=== PATIENT | female | born 1995 | race American Indian/Alaskan Native ===

== ENCOUNTER 2017-01-12 23:04 | Emergency (ER) | payer OTHER ==
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
[2017-01-13 04:22] VITALS: BP 119/76
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
[2017-01-13] MEDS ORDERED: FLEXERIL PO ONE (07:06)
[2017-01-13] MEDS ORDERED: TORADOL IM ONE (07:06)
== END 2017-01-13 07:21 | disposition home or self-care (01) ==
LOC: ED 23:04
DX: S06.891A Other specified intracranial injury with loss of consciousness of 30 minutes or less, initial encounter (principal); S16.1XXA Strain of muscle, fascia and tendon at neck level, initial encounter; S39.012A Strain of muscle, fascia and tendon of lower back, initial encounter; V49.59XA Passenger injured in collision with other motor vehicles in traffic accident, initial encounter; Y92.488 Other paved roadways as the place of occurrence of the external cause; Y93.89 Activity, other specified; Y99.8 Other external cause status
CPT/HCPCS: 70450; 72070; 72100; 72125; 81025; 96372; 99285; J1885

== ENCOUNTER 2020-02-15 16:28 | Emergency (ER) | payer SELFPAY ==
[2020-02-15 16:51] VITALS: BP 107/63
[2020-02-15 17:35] LABS: Hematocrit 35.6 % (30.3-42.9); Hemoglobin 11.9 gm/dl (10.1-14.3); Lymphocytes # (Auto) 1.8 K/mm3 (1.2-5.4); Lymphocytes % (Auto) 37.4 % (13.4-35.0); Mean Corpuscular HGB Conc 33 % (30-34); Mean Corpuscular Volume 91 fl (79-97); Monocytes # (Auto) 0.4 K/mm3 (0.0-0.8); Platelet Count 261 K/mm3 (140-440); Red Blood Count 3.93 M/mm3 (3.65-5.03); Red Cell Distribution Width 13.5 % (13.2-15.2)
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
--- NOTE | 2020-02-15 19:43 | Ultrasound Report ---
ULTRASOUND OBSTETRIC Indication: pelvic pain and vaginal bleeding Findings: Transabdominal and transvaginal imaging is performed. Intrauterine is identified [place]-rump length = 1.83 cm = 8 weeks, 2 day(s). No heartbeat is identified. Right ovary measures 3.7 cm and is unremarkable. The left ovary measures 3.4 cm and contains a 1.7 cm cyst. Impression: Intrauterine is identified with calculated sonographic age of 8 weeks and 2 days based upon crown-rump length. No heartbeat is identified Signer Name: Slim Lopes MD Signed: 02/15/2020 7:39 PM Workstation Name: [id number]
[2020-02-15 20:08] LABS: Bacteria,Urine 1+ /HPF (Negative); Bilirubin,Urine NEG (Negative); Blood,Urine LG (Negative); Color,Urine Amber (Yellow); Mucus,Urine 3+ /HPF; Protein,Urine <15 mg/dL mg/dL (Negative); Urobilinogen,Urine < 2.0 mg/dL (<2.0)
== END 2020-02-15 20:25 | disposition home or self-care (01) ==
LOC: ED 16:28
DX: O20.0 Threatened abortion (principal); O23.41 Unspecified infection of urinary tract in pregnancy, first trimester; Z3A.08 8 weeks gestation of pregnancy; Z79.899 Other long term (current) drug therapy; Z98.890 Other specified postprocedural states
CPT/HCPCS: 36415; 76801; 76817; 81001; 84702; 85025; 86900; 86901

== ENCOUNTER 2020-07-13 15:36 | Emergency (ER) | payer SELFPAY ==
[2020-07-13 15:54] VITALS: BP 100/61
[2020-07-13 17:04] LABS: Bacteria,Urine 1+ /HPF (Negative); Bilirubin,Urine NEG (Negative); Blood,Urine NEG (Negative); Color,Urine Yellow (Yellow); Mucus,Urine FEW /HPF; Protein,Urine <15 mg/dL mg/dL (Negative); RBC,Urine < 1.0 /HPF (0.0-6.0); Urobilinogen,Urine < 2.0 mg/dL (<2.0)
== END 2020-07-13 19:08 | disposition left against medical advice (07) ==
LOC: ED 15:36
DX: O26.899 Other specified pregnancy related conditions, unspecified trimester (principal); R07.89 Other chest pain; R10.9 Unspecified abdominal pain; Z3A.00 Weeks of gestation of pregnancy not specified; Z53.21 Procedure and treatment not carried out due to patient leaving prior to being seen by health care provider
CPT/HCPCS: 81001

== ENCOUNTER 2020-07-17 11:09 | Emergency (ER) | payer SELFPAY ==
[2020-07-17 12:29] LABS: Basophils % (Auto) 0.5 % (0.0-1.8); Eosinophils % (Auto) 0.2 % (0.0-4.3); Hematocrit 37.7 % (30.3-42.9); Hemoglobin 12.4 gm/dl (10.1-14.3); Lymphocytes # (Auto) 1.8 K/mm3 (1.2-5.4); Lymphocytes % (Auto) 33.9 % (13.4-35.0); Mean Corpuscular HGB Conc 33 % (30-34); Mean Corpuscular Volume 88 fl (79-97); Monocytes # (Auto) 0.4 K/mm3 (0.0-0.8); Platelet Count 274 K/mm3 (140-440); Red Blood Count 4.31 M/mm3 (3.65-5.03); Red Cell Distribution Width 17.1 % (13.2-15.2)
[2020-07-17 12:32] LABS: Alanine Aminotransferase 7 units/L (7-56); Blood Urea Nitrogen 6 mg/dL (7-17); Calcium 9.5 mg/dL (8.4-10.2); Hemolysis Index 4
[2020-07-17 12:36] LABS: BUN/Creatinine Ratio 10
[2020-07-17] MEDS ORDERED: ACETAMINOPHEN 500 MG TAB PO ONE (14:09)
[2020-07-17] MEDS ORDERED: SODIUM CHLORIDE 0.9% 1000 ML 1,000 ML IV ONE (14:11)
--- NOTE | 2020-07-17 14:11 | Emergency Department Report ---
ED General Adult HPI - General Chief complaint: Medical Clearance Stated complaint: /CHEST/BACK/SOB/ABD PAIN Time Seen by Provider: 07/17/20 13:38 Source: patient Mode of arrival: Ambulatory Limitations: No Limitations - History of Present Illness Initial comments: 25-year-old -[place] female patient presents with complaints of lower abdominal cramping pain x1 week and feeling like her heart is racing when standing up for the past 2 weeks. Patient states she had a positive test 1 week ago. She denies any vaginal bleeding, dyspareunia, vaginal discharge,, chest pain/shortness of breath, fever/chills/sweats, or dysuria/he maturia. She does admit to urinary frequency. She is A0. She rates her current pain is 8/10 in severity. - Related Data Previous Rx's Medication Instructions Recorded Last Taken Type Naproxen [Naprosyn] 500 mg PO BID #30 tablet 01/13/17 Unknown Rx methOCARBAMOL [Robaxin TAB] 500 mg PO BID #20 tab 01/13/17 Unknown Rx Nitrofurantoin [place]/M-Cryst 100 mg PO Q12HR #14 capsule 02/15/20 Unknown Rx [Macrobid CAP] 21/Iron Fu/Folic Acid 1 each PO DAILY #30 tablet 02/15/20 Unknown Rx [ Complete Caplet] Amoxicillin/Potassium Clav 1 each PO BID 5 Days #10 tablet 07/17/20 Unknown Rx [Augmentin 875-125 Tablet] Allergies Allergy/AdvReac Type Severity Reaction Status Date / Time No Known Allergies Allergy Verified 07/13/20 15:51 ED Review of Systems ROS: Stated complaint: /CHEST/BACK/SOB/ABD PAIN Other details as noted in HPI ED Past Medical Hx - Past Medical History Previous Medical History?: No - Surgical History Past Surgical History?: No Additional Surgical History: right ankle - Social History Smoking Status: Never Smoker Substance Use Type: None - Medications Home Medications: Home Medications Medication Instructions Recorded Confirmed Last Taken Type Naproxen [Naprosyn] 500 mg PO BID #30 tablet 01/13/17 Unknown Rx methOCARBAMOL [Robaxin TAB] 500 mg PO BID #20 tab 01/13/17 Unknown Rx Nitrofurantoin [place]/M-Cryst 100 mg PO Q12HR #14 capsule 02/15/20 Unknown Rx [Macrobid CAP] 21/Iron Fu/Folic Acid 1 each PO DAILY #30 tablet 02/15/20 Unknown Rx [ Complete Caplet] Amoxicillin/Potassium Clav 1 each PO BID 5 Days #10 tablet 07/17/20 Unknown Rx [Augmentin 875-125 Tablet] ED Physical Exam - General Limitations: No Limitations General appearance: alert, in no apparent distress - Head Head exam: Present: atraumatic - Eye Eye exam: Present: normal appearance. Absent: scleral icterus - ENT ENT exam: Present: mucous membranes moist - Neck Neck exam: Present: normal inspection - Respiratory Respiratory exam: Present: normal lung sounds bilaterally. Absent: respiratory distress, chest wall tenderness - Cardiovascular Cardiovascular Exam: Present: regular rate, normal rhythm. Absent: systolic murmur, diastolic murmur, rubs, gallop - GI/Abdominal GI/Abdominal exam: Present: soft, tenderness (Suprapubic), normal bowel sounds. Absent: distended, guarding, rebound, rigid - Extremities Exam Extremities exam: Present: normal inspection - Back Exam Back exam: Present: normal inspection - Neurological Exam Neurological exam: Present: alert, oriented X3, normal gait - Psychiatric Psychiatric exam: Present: normal affect, normal mood - Skin Skin exam: Present: warm, dry, intact, normal color. Absent: rash, cyanosis, diaphoretic ED Course Vital Signs 07/17/20 07/17/20 07/17/20 11:17 16:13 16:15 Temperature 98.8 F Pulse Rate 104 H Respiratory 16 Rate Blood Pressure 114/63 98/65 [Left] Blood Pressure 108/68 114/63 [Right] O2 Sat by Pulse 98 Oximetry ED Medical Decision Making - Lab Data Result diagrams: 07/17/20 11:31 07/17/20 11:31 Lab Results 07/17/20 07/17/20 07/17/20 Range/Units 11:31 11:31 11:31 WBC 5.3 (4.5-11.0) K/mm3 RBC 4.31 (3.65-5.03) M/mm3 Hgb 12.4 (10.1-14.3) gm/dl Hct 37.7 (30.3-42.9) % MCV 88 (79-97) fl MCH 29 (28-32) pg MCHC 33 (30-34) % RDW 17.1 H (13.2-15.2) % Plt Count 274 (140-440) K/mm3 Lymph % (Auto) 33.9 (13.4-35.0) % [place] % (Auto) 8.0 H (0.0-7.3) % Eos % (Auto) 0.2 (0.0-4.3) % Baso % (Auto) 0.5 (0.0-1.8) % Lymph # (Auto) 1.8 (1.2-5.4) K/mm3 [place] # (Auto) 0.4 (0.0-0.8) K/mm3 Eos # (Auto) 0.0 (0.0-0.4) K/mm3 Baso # (Auto) 0.0 (0.0-0.1) K/mm3 Seg Neutrophils % 57.4 (40.0-70.0) % Seg Neutrophils # 3.0 (1.8-7.7) K/mm3 Sodium 134 L (137-145) mmol/L Potassium 4.5 (3.6-5.0) mmol/L Chloride 100.2 (98-107) mmol/L Carbon Dioxide 25 (22-30) mmol/L Anion Gap 13 mmol/L BUN 6 L (7-17) mg/dL Creatinine 0.6 (0.6-1.2) mg/dL Estimated GFR > 60 ml/min BUN/Creatinine Ratio 10 % Glucose 76 (65-100) mg/dL Calcium 9.5 (8.4-10.2) mg/dL Total Bilirubin 0.50 (0.1-1.2) mg/dL AST 10 (5-40) units/L ALT 7 (7-56) units/L Alkaline Phosphatase 54 (35-129) units/L Total Protein 7.5 (6.3-8.2) g/dL Albumin 4.0 (3.9-5) g/dL Albumin/Globulin Ratio 1.1 % HCG, Quant 17926 H (0-4) mIU/mL Urine Color (Yellow) Urine Turbidity (Clear) Urine pH (5.0-7.0) Ur Specific [place] (1.003-1.030) Urine Protein (Negative) mg/dL Urine Glucose (UA) (Negative) mg/dL Urine Ketones (Negative) mg/dL Urine Blood (Negative) Urine Nitrite (Negative) Urine Bilirubin (Negative) Urine Urobilinogen (<2.0) mg/dL Ur Leukocyte Esterase (Negative) Urine WBC (Auto) (0.0-6.0) /HPF Urine RBC (Auto) (0.0-6.0) /HPF U Epithel Cells (Auto) (0-13.0) /HPF Urine Bacteria (Auto) (Negative) /HPF Urine Mucus /HPF 07/17/20 Range/Units 13:19 WBC (4.5-11.0) K/mm3 RBC (3.65-5.03) M/mm3 Hgb (10.1-14.3) gm/dl Hct (30.3-42.9) % MCV (79-97) fl MCH (28-32) pg MCHC (30-34) % RDW (13.2-15.2) % Plt Count (140-440) K/mm3 Lymph % (Auto) (13.4-35.0) % [place] % (Auto) (0.0-7.3) % Eos % (Auto) (0.0-4.3) % Baso % (Auto) (0.0-1.8) % Lymph # (Auto) (1.2-5.4) K/mm3 [place] # (Auto) (0.0-0.8) K/mm3 Eos # (Auto) (0.0-0.4) K/mm3 Baso # (Auto) (0.0-0.1) K/mm3 Seg Neutrophils % (40.0-70.0) % Seg Neutrophils # (1.8-7.7) K/mm3 Sodium (137-145) mmol/L Potassium (3.6-5.0) mmol/L Chloride (98-107) mmol/L Carbon Dioxide (22-30) mmol/L Anion Gap mmol/L BUN (7-17) mg/dL Creatinine (0.6-1.2) mg/dL Estimated GFR ml/min BUN/Creatinine Ratio % Glucose (65-100) mg/dL Calcium (8.4-10.2) mg/dL Total Bilirubin (0.1-1.2) mg/dL AST (5-40) units/L ALT (7-56) units/L Alkaline Phosphatase (35-129) units/L Total Protein (6.3-8.2) g/dL Albumin (3.9-5) g/dL Albumin/Globulin Ratio % HCG, Quant (0-4) mIU/mL Urine Color [place] (Yellow) Urine Turbidity Slightly-cloudy (Clear) Urine pH 5.0 (5.0-7.0) Ur Specific [place] 1.026 (1.003-1.030) Urine Protein 30 mg/dl (Negative) mg/dL Urine Glucose (UA) Neg (Negative) mg/dL Urine Ketones 20 (Negative) mg/dL Urine Blood Neg (Negative) Urine Nitrite Pos (Negative) Urine Bilirubin Neg (Negative) Urine Urobilinogen < 2.0 (<2.0) mg/dL Ur Leukocyte Esterase Lg (Negative) Urine WBC (Auto) 7.0 H (0.0-6.0) /HPF Urine RBC (Auto) 3.0 (0.0-6.0) /HPF U Epithel Cells (Auto) 8.0 (0-13.0) /HPF Urine Bacteria (Auto) 3+ (Negative) /HPF Urine Mucus 3+ /HPF - EKG Data EKG shows normal: sinus rhythm Rate: normal - Radiology Data Radiology results: report reviewed ULTRASOUND OBSTETRIC Indication: suprapubic pain Findings: There is a single, living intrauterine . [place]-rump length = 0.43 cm = 6 weeks, 1 day(s). Gestational sac size corresponds to 7 week 1 day gestation. heart rate is 112 beats per minute. The ovaries are not well visualized. There appears to be a small amount of free fluid Impression: Single, living intrauterine with estimated sonographic age of 6 weeks, 5 day(s). - Medical Decision Making 25-year-old -[place] female patient presents with complaints of lower abdominal cramping pain x1 week and feeling like her heart is racing when standing up for the past 2 weeks. Patient states she had a positive test 1 week ago. She denies any vaginal bleeding, dyspareunia, vaginal discharge,, chest pain/shortness of breath, fever/chills/sweats, or dysuria/hematuria. She does admit to urinary frequency. She is A0. She rates her current pain is 8/10 in severity. There is suprapubic tenderness to palpation noted on exam without rebound or guarding. CBC and CMP are WNL. UA shows 8 WBCs and is positive for nitrites. Urine culture sent. Mild orthostatic hypotension noted. Patient given 1 L saline. EKG is normal. Patient is nontoxic-appearing, her vitals are normal, she is stable for discharge home. Prescription for UTI given, Augmentin. Patient instructed to follow-up with [employer] within 3 days. Referral for [employer] was also given. Strict return precautions were discussed in great detail with patient who verbalizes understanding. Critical care attestation.: If time is entered above; I have spent that time in minutes in the direct care of this critically ill patient, excluding procedure time. ED Disposition Clinical Impression: Dehydration UTI in Qualifiers: Trimester: first trimester Qualified Code(s): O23.41 - Unspecified infection of urinary tract in , first trimester Disposition: TO HOME OR SELFCARE Is pt being admited?: No Condition: Stable Instructions: Urinary Tract Infection in Women (ED), Abdominal Pain in (ED), Dehydration (ED) Prescriptions: Amoxicillin/Potassium Clav [Augmentin 875-125 Tablet] 1 each PO BID 5 Days #10 tablet Referrals: ROMANA HERCULES MD [Staff Physician] - 07/19/20
[2020-07-17 14:21] LABS: Bacteria,Urine 3+ /HPF (Negative); Bilirubin,Urine NEG (Negative); Blood,Urine NEG (Negative); Color,Urine Amber (Yellow); Mucus,Urine 3+ /HPF; Urobilinogen,Urine < 2.0 mg/dL (<2.0)
--- NOTE | 2020-07-17 15:21 | Ultrasound Report ---
ULTRASOUND OBSTETRIC Indication: suprapubic pain Findings: There is a single, living intrauterine . [employer]-rump length = 0.43 cm = 6 weeks, 1 day(s). Gestational sac size corresponds to 7 week 1 day ges tation. heart rate is 112 beats per minute. The ovaries are not well visualized. There appears to be a small amount of free fluid Impression: Single, living intrauterine with estimated sonographic age of 6 weeks, 5 day(s). Signer Name: Slim Lopes MD Signed: 07/17/2020 3:17 PM Workstation Name: [id number]
[2020-07-17 16:16] VITALS: BP 98/65
== END 2020-07-17 18:10 | disposition home or self-care (01) ==
LOC: ED 11:09
DX: O23.41 Unspecified infection of urinary tract in pregnancy, first trimester (principal); O99.281 Endocrine, nutritional and metabolic diseases complicating pregnancy, first trimester; Z3A.08 8 weeks gestation of pregnancy; E86.0 Dehydration
CPT/HCPCS: 36415; 76801; 80053; 81001; 84702; 85025; 87076; 87086; 87186; 96361; 96374; 99284; J7030

== ENCOUNTER 2020-08-23 13:03 | Emergency (ER) | payer SELFPAY ==
--- NOTE | 2020-08-23 13:25 | Emergency Department Report ---
ED Female HPI - General Chief complaint: Vaginal Bleeding Stated complaint: POSSIBLE MISCARRIAGE Time Seen by Provider: 08/23/20 13:23 Source: patient Mode of arrival: Ambulatory Limitations: No Limitations - History of Present Illness Initial comments: 25-year-old -[place] female presents to the emergency room complaining of vaginal bleeding for 1 week with passing clots yesterday. Patient complains of mild pelvic cramping. Patient reports that she is approximate 11 weeks . Last menstrual period was May 27, 2020. She is 5 para 2. She has no care. She has no desire to have this baby. MD Complaint: vaginal bleeding, pelvic pain Onset/Timin -: week(s) Location: suprapubic Severity scale (0 -10): 10 Quality: cramping Consistency: constant Improves with: none Worsens with: none Are you Now?: Yes Last Menstrual Period: 05/27/20 EDC: 03/03/21 Associated Symptoms: vaginal bleeding, abdominal pain - Related Data Sexually active: Yes : 5 Para: 2 Previous Rx's Medication Instructions Recorded Last Taken Type Naproxen [Naprosyn] 500 mg PO BID #30 tablet 01/13/17 Unknown Rx methOCARBAMOL [Robaxin TAB] 500 mg PO BID #20 tab 01/13/17 Unknown Rx 21/Iron Fu/Folic Acid 1 each PO DAILY #30 tablet 02/15/20 Unknown Rx [ Complete Caplet] Amoxicillin/Potassium Clav 1 each PO BID 5 Days #10 tablet 07/17/20 Unknown Rx [Augmentin 875-125 Tablet] Nitrofurantoin Terry/M-Cryst 100 mg PO Q12HR #14 capsule 08/23/20 Unknown Rx [Macrobid CAP] Vit-Fe Fumar-FA [ 1 tab PO QDAY #90 tablet 08/23/20 Unknown Rx Vitamin] Allergies Allergy/AdvReac Type Severity Reaction Status Date / Time No Known Allergies Allergy Verified 08/23/20 13:05 ED Review of Systems ROS: Stated complaint: POSSIBLE MISCARRIAGE Other details as noted in HPI ED Past Medical Hx - Past Medical History Previous Medical History?: No - Surgical History Past Surgical History?: Yes Additional Surgical History: right ankle - Social History Smoking Status: Never Smoker Substance Use Type: None - Medications Home Medications: Home Medications Medication Instructions Recorded Confirmed Last Taken Type Naproxen [Naprosyn] 500 mg PO BID #30 tablet 01/13/17 Unknown Rx methOCARBAMOL [Robaxin TAB] 500 mg PO BID #20 tab 01/13/17 Unknown Rx 21/Iron Fu/Folic Acid 1 each PO DAILY #30 tablet 02/15/20 Unknown Rx [ Complete Caplet] Amoxicillin/Potassium Clav 1 each PO BID 5 Days #10 tablet 07/17/20 Unknown Rx [Augmentin 875-125 Tablet] Nitrofurantoin Terry/M-Cryst 100 mg PO Q12HR #14 capsule 08/23/20 Unknown Rx [Macrobid CAP] Vit-Fe Fumar-FA [ 1 tab PO QDAY #90 tablet 08/23/20 Unknown Rx Vitamin] ED Physical Exam - General Limitations: No Limitations ED Course Vital Signs 08/23/20 13:10 Temperature 97.4 F L Pulse Rate 105 H Respiratory 16 Rate Blood Pressure 119/70 O2 Sat by Pulse 99 Oximetry ED Medical Decision Making - Lab Data Result diagrams: 08/23/20 14:18 - Radiology Data Radiology results: report reviewed Referring Physician:BOO MUNOZPatient Name:STACIE JOSEPHPatient ID:[id number] of :[id number]:FemaleAccession:[id number] te:[id number] Status:[place] [address] Ultrasound Report Signed Patient: STACIE JOSEPH MR#: [id number] : 1995 Acct:[id number] Age/Sex: 25 / F ADM Date: 08/23/20 Loc: ED Attending Dr: Ordering Physician: MARGARET PROCTOR Date of Service: 08/23/20 Procedure(s): US OB <= 14 weeks fetus Accession Number(s): [id number] cc: MARGARET PROCTOR ULTRASOUND OBSTETRIC INDICATION: 11 weeks with vaginal bleeding. TECHNIQUE: Transabdominal. COMPARISON: OB ultrasound from 07/17/2020 FINDINGS: GESTATIONAL SAC: Well-defined oval shape and intrauterine in location. YOLK SAC: No significant abnormality. EMBRYO/FETUS: No significant abnormality. - [place]-Rump Length = 5.51 cm = 12 weeks, 1 day(s). - Heart Rate = 149 beats per minute. ADNEXA: No significant abnormality. FREE FLUID: None. ADDITIONAL FINDINGS: An area of subchorionic hemorrhage measures 4.5 x 3.1 x 4.9 cm. IMPRESSION: 1. Single, living intrauterine with estimated sonographic age of 12 weeks, 1 day(s). 2. Subchorionic hemorrhage as above. Signer Name: Barry Bruner MD Signed: 08/23/2020 2:40 PM Workstation Name: [id number] Transcribed By: MN Dictated By: Barry Bruner MD Electronically Authenticated By: Barry Bruner MD Signed Date/Time: 08/23/20 1440 DD/ 1436 TD/TT: - Medical Decision Making 25-year-old -[place] female presents to the emergency room complaining of vaginal bleeding for 1 week with passing clots yesterday. Patient complains of mild pelvic cramping. Patient reports that she is approximate 11 weeks . Last menstrual period was May 27, 2020. She is 5 para 2. She has no care. She has no desire to have this baby. Critical care attestation.: If time is entered above; I have spent that time in minutes in the direct care of this critically ill patient, excluding procedure time. ED Disposition Clinical Impression: Subchorionic hemorrhage in second trimester Qualifiers: Fetus number: single or unspecified fetus Qualified Code(s): O41.8X20 - Other specified disorders of amniotic fluid and membranes, second trimester, not applicable or unspecified; O46.8X2 - Other antepartum hemorrhage, second tri mester UTI (urinary tract infection) Qualifiers: Urinary tract infection type: site unspecified Hematuria presence: with he maturia Qualified Code(s): N39.0 - Urinary tract infection, site not specified; R31.9 - Hematuria, unspecified Disposition: DC-01 TO HOME OR SELFCARE Is pt being admited?: No Does the pt Need Aspirin: No Condition: Stable Instructions: Vaginal Bleeding During , Second Trimester, Activity Restriction During , Subchorionic Hematoma Additional Instructions: Urine shows that you have urinary tract infection. Ultrasound shows that you are 12 weeks and 1 day. Also shows that you have a mild bleeding from implantation of the fetus from 1 location to the other. Fetus heart rate is 147 bpm. Is very important for you to take your vitamins and to follow-up with care with an SUPPLY OFFICER. I have listed their information below for your convenience. Is also very important for you to increase your water intake by 3 to 4 L daily. Prescriptions: Nitrofurantoin [place]/M-Cryst [Macrobid CAP] 100 mg PO Q12HR #14 capsule Vit-Fe Fumar-FA [ Vitamin] 1 tab PO QDAY #90 tablet Referrals: PRIMARY CAREMD [Primary Care Provider] - 3-5 Days [facility] [Provider Group] - 3-5 Days [facility] [Provider Group] - 3-5 Days
--- NOTE | 2020-08-23 14:45 | Ultrasound Report ---
ULTRASOUND OBSTETRIC INDICATION: 11 weeks with vaginal bleeding. TECHNIQUE: Transabdominal. COMPARISON: OB ultrasound from 07/17/2020 FINDINGS: GESTATIONAL SAC: Well-defined oval shape and intrauterine in location. YOLK SAC: No significant abnormality. EMBRYO/FETUS: No significant abnormality. - [place]-Rump Length = 5.51 cm = 12 weeks, 1 day(s). - Heart Rate = 149 beats per minute. ADNEXA: No significant abnormality. FREE FLUID: None. ADDITIONAL FINDINGS: An area of subchorionic hemorrhage measures 4.5 x 3.1 x 4.9 cm. IMPRESSION: 1. Single, living intrauterine with estimated sonographic age of 12 weeks, 1 day(s). 2. Subchorionic hemorrhage as above. Signer Name: Barry Bruner MD Signed: 08/23/2020 2:40 PM Workstation Name: [id number]
[2020-08-23 15:10] LABS: Basophils % (Auto) 0.4 % (0.0-1.8); Eosinophils % (Auto) 0.8 % (0.0-4.3); Hematocrit 32.6 % (30.3-42.9); Hemoglobin 10.9 gm/dl (10.1-14.3); Lymphocytes # (Auto) 1.3 K/mm3 (1.2-5.4); Lymphocytes % (Auto) 27.4 % (13.4-35.0); Mean Corpuscular HGB Conc 34 % (30-34); Mean Corpuscular Volume 91 fl (79-97); Monocytes # (Auto) 0.4 K/mm3 (0.0-0.8); Monocytes % (Auto) 7.8 % (0.0-7.3); Platelet Count 214 K/mm3 (140-440); Red Blood Count 3.58 M/mm3 (3.65-5.03); Red Cell Distribution Width 15.5 % (13.2-15.2)
[2020-08-23 15:21] LABS: Alanine Aminotransferase 6 units/L (7-56); Albumin 3.3 g/dL (3.9-5); Blood Urea Nitrogen 4 mg/dL (7-17); Calcium 9.1 mg/dL (8.4-10.2); Hemolysis Index 30
[2020-08-23 15:25] LABS: BUN/Creatinine Ratio 8
[2020-08-23 16:02] LABS: Bacteria,Urine 4+ /HPF (Negative); Mucus,Urine 3+ /HPF
[2020-08-23 16:21] LABS: Color,Urine Yellow (Yellow)
[2020-08-23 17:03] VITALS: BP 116/46
== END 2020-08-23 17:03 | disposition home or self-care (01) ==
LOC: ED 13:03
DX: O41.8X10 Other specified disorders of amniotic fluid and membranes, first trimester, not applicable or unspecified (principal); O46.8X1 Other antepartum hemorrhage, first trimester; O23.41 Unspecified infection of urinary tract in pregnancy, first trimester; Z79.899 Other long term (current) drug therapy; Z3A.11 11 weeks gestation of pregnancy
CPT/HCPCS: 36415; 76801; 80053; 81001; 84702; 85025; 86900; 86901; 87076; 87086; 87186

== ENCOUNTER 2020-09-15 07:28 | Emergency (ER) | payer SELFPAY ==
[2020-09-15 07:45] VITALS: BP 105/44
--- NOTE | 2020-09-15 07:58 | Emergency Department Report ---
ED Female HPI - General Chief complaint: Vaginal Bleeding Stated complaint: POSS MISCARRAGE Time Seen by Provider: 09/15/20 07:53 Source: patient Mode of arrival: Ambulatory Limitations: No Limitations - History of Present Illness Initial comments: CC: "I have been bleeding. I am in pain." HPI: THis is a 25 yo female without significant past medical history who presents with vaginal bleeding and pelvic pain for several days. Patient is currently 14 weeks pregannt. She has had intermittent bleeding for several weeks. The cramping and bleeding has become more intense. Patient has depressed mood. "I have a lot going on." She denies plans to harm herself. She has been 6 times. She has history of abortions. MD Complaint: vaginal bleeding, pelvic pain -: Gradual, week(s) (several weeks) Severity: moderate Severity scale (0 -10): 7 Quality: cramping Consistency: constant Improves with: none Worsens with: none Are you Now?: Yes - Related Data Previous Rx's Medication Instructions Recorded Last Taken Type Naproxen [Naprosyn] 500 mg PO BID #30 tablet 01/13/17 Unknown Rx methOCARBAMOL [Robaxin TAB] 500 mg PO BID #20 tab 01/13/17 Unknown Rx 21/Iron Fu/Folic Acid 1 each PO DAILY #30 tablet 02/15/20 Unknown Rx [ Complete Caplet] Amoxicillin/Potassium Clav 1 each PO BID 5 Days #10 tablet 07/17/20 Unknown Rx [Augmentin 875-125 Tablet] Nitrofurantoin [place]/M-Cryst 100 mg PO Q12HR #14 capsule 08/23/20 Unknown Rx [Macrobid CAP] Vit-Fe Fumar-FA [ 1 tab PO QDAY #90 tablet 08/23/20 Unknown Rx Vitamin] Allergies Allergy/AdvReac Type Severity Reaction Status Date / Time No Known Allergies Allergy Verified 08/23/20 13:05 ED Review of Systems ROS: Stated complaint: POSS MISCARRAGE Other details as noted in HPI Comment: All other systems reviewed and negative Constitutional: denies: fever, malaise Respiratory: denies: cough Gastrointestinal: abdominal pain ED Past Medical Hx - Past Medical History Previous Medical History?: No - Surgical History Past Surgical History?: Yes Additional Surgical History: right ankle - Social History Smoking Status: Never Smoker Substance Use Type: None - Medications Home Medications: Home Medications Medication Instructions Recorded Confirmed Last Taken Type Naproxen [Naprosyn] 500 mg PO BID #30 tablet 01/13/17 Unknown Rx methOCARBAMOL [Robaxin TAB] 500 mg PO BID #20 tab 01/13/17 Unknown Rx 21/Iron Fu/Folic Acid 1 each PO DAILY #30 tablet 02/15/20 Unknown Rx [ Complete Caplet] Amoxicillin/Potassium Clav 1 each PO BID 5 Days #10 tablet 07/17/20 Unknown Rx [Augmentin 875-125 Tablet] Nitrofurantoin [place]/M-Cryst 100 mg PO Q12HR #14 capsule 08/23/20 Unknown Rx [Macrobid CAP] Vit-Fe Fumar-FA [ 1 tab PO QDAY #90 tablet 08/23/20 Unknown Rx Vitamin] ED Physical Exam - General Limitations: No Limitations General appearance: alert, in no apparent distress, other (tearful) - Head Head exam: Present: atraumatic, normocephalic - Eye Eye exam: Present: normal appearance - ENT ENT exam: Present: mucous membranes moist - Neck Neck exam: Present: normal inspection - Respiratory Respiratory exam: Present: normal lung sounds bilaterally. Absent: respiratory distress, wheezes, rales, rhonchi - Cardiovascular Cardiovascular Exam: Present: regular rate, normal rhythm, normal heart sounds. Absent: systolic murmur, diastolic murmur, rubs, gallop - GI/Abdominal GI/Abdominal exam: Present: soft, normal bowel sounds. Absent: distended, tenderness, guarding, rebound - Extremities Exam Extremities exam: Present: normal inspection - Back Exam Back exam: Present: normal inspection - Neurological Exam Neurological exam: Present: alert, oriented X3 - Psychiatric Psychiatric exam: Present: normal affect, depressed. Absent: suicidal ideation - Skin Skin exam: Present: warm, dry, intact, normal color. Absent: rash ED Course Vital Signs 09/15/20 09/15/20 07:42 08:02 Temperature 98.7 F Pulse Rate 64 Respiratory 16 18 Rate Blood Pressure 105/44 [Right] O2 Sat by Pulse 98 Oximetry ED Medical Decision Making - Lab Data Result diagrams: 09/15/20 07:55 09/15/20 07:55 - Medical Decision Making Spontaneous miscarriage Ultrasound revealed complete miscarriage. There is no intrauterine at this time. Upon lab review CBC chemistry with normal limits. Blood type O+. Critical care attestation.: If time is entered above; I have spent that time in minutes in the direct care of this critically ill patient, excluding procedure time. ED Disposition Clinical Impression: Spontaneous miscarriage Disposition: - TO HOME OR SELFCARE Is pt being admited?: No Does the pt Need Aspirin: No Condition: Stable Instructions: Miscarriage, [id number], Managing Loss
[2020-09-15 08:40] LABS: Hematocrit 30.3 % (30.3-42.9); Hemoglobin 10.2 gm/dl (10.1-14.3); Mean Corpuscular HGB Conc 34 % (30-34); Mean Corpuscular Volume 93 fl (79-97); Platelet Count 229 K/mm3 (140-440); Red Blood Count 3.26 M/mm3 (3.65-5.03)
[2020-09-15] MEDS ORDERED: IBUPROFEN 800 MG TAB PO ONE ×2 (08:41→09:55)
[2020-09-15] MEDS ORDERED: HYDROcodone/ACETAMINOPHEN 5-325 MG TAB PO ONE ×2 (08:41→09:56)
[2020-09-15] MEDS ORDERED: ONDANSETRON 4 MG ODT TAB PO ONE (08:41)
[2020-09-15] MEDS ORDERED: ACETAMINOPHEN 500 MG TAB PO ONE (08:42)
[2020-09-15 09:01] LABS: Alanine Aminotransferase 6 units/L (7-56); Albumin 3.2 g/dL (3.9-5); Blood Urea Nitrogen 5 mg/dL (7-17); Calcium 8.9 mg/dL (8.4-10.2); Hemolysis Index 0
[2020-09-15 09:11] LABS: BUN/Creatinine Ratio 10
--- NOTE | 2020-09-15 09:16 | Ultrasound Report ---
[facility]IME[facility] OBSTETRIC ULTRASOUND HISTORY: Provided clinical history of pelvic pain and vaginal bleeding. Clinical gestational age of 1 6 weeks and 6 days. COMPARISON: 08/23/2020 oh the ultrasound TECHNIQUE: Routine transabdominal OB ultrasound performed. Transvaginal imaging not performed at mynor ent's request. FINDINGS: Uterus: Enlarged at 9.1 x 9.6 x 10.4 cm. Thickened, heterogeneous appearing endometrium without evid ence of gestational sac, yolk sac, or fetus/embryo to suggest intrauterine at this time. Embryonic/ cardiac activity: Not visualized. Placenta: Too small for evaluation. Amniotic fluid volume: Not visualized. Ovaries: The right ovary is normal in size and appearance with normal blood flow, measuring 3.3 x 1. 4 x 1.4 cm. The left ovary is normal in size and appearance with normal blood flow, measuring 2.5 x 1.3 x 1.5 cm. Additional findings: None. IMPRESSION Thickened, heterogeneous endometrium without evidence of intrauterine at this time. Lack of internal vascularity is concerning for complete miscarriage. Recommend correlation with beta hCG, cl ose continued follow-up, and further evaluation as warranted. Signer Name: Markell Johnson MD Signed: 09/15/2020 9:11 AM Workstation Name: [id number]
== END 2020-09-15 10:05 | disposition home or self-care (01) ==
LOC: ED 07:28
DX: O03.9 Complete or unspecified spontaneous abortion without complication (principal); Z79.899 Other long term (current) drug therapy; Z3A.14 14 weeks gestation of pregnancy
CPT/HCPCS: 36415; 76801; 76802; 80053; 84703; 85027; 86900; 86901; Q0162

== ENCOUNTER 2020-11-18 10:04 | Inpatient (IN) | payer SELFPAY ==
[2020-11-18] MEDS ORDERED: LACTATED RINGERS 1000 ML IV SOLN IV ONE (10:16)
[2020-11-18] MEDS ORDERED: ONDANSETRON 4 MG/2 ML INJ IV ONE (10:17)
[2020-11-18] MEDS ORDERED: PIPERACIL/TAZOBACTA 4.5/NS 100 4.5 GM/100 ML VIAL IV ONE (10:17)
[2020-11-18] MEDS ORDERED: MORPHINE 4 MG/1 ML INJ IV ONE (10:17)
[2020-11-18] MEDS ORDERED: ACETAMINOPHEN 325 MG TAB PO ONE (10:17)
--- NOTE | 2020-11-18 10:18 | Emergency Department Report ---
ED Abdominal Pain HPI - General Chief Complaint: Fever Stated Complaint: BODYACHES Time Seen by Provider: 11/18/20 10:14 Source: patient Mode of arrival: Ambulatory Limitations: No Limitations - History of Present Illness Initial Comments: pt is a 25 yo female who presents to the ED with c/o lower abd pain and lower back pain that began two days ago. she has associated urinary frequency, urinary urgency, and odor to her urine. she states she has been taking azo over the counter. she states she also has right ear discomfort. she has chills, fever, an d body aches. she denies any n/v/d, dysuria, abnormal vaginal discharge, melena, hematemesis, hematochezia, CP, or SOB. pt denies pmhx. no allergies to meds. [facility] 11/10/2020. - Related Data Previous Rx's Medication Instructions Recorded Last Taken Type Naproxen [Naprosyn] 500 mg PO BID #30 tablet 01/13/17 Unknown Rx methOCARBAMOL [Robaxin TAB] 500 mg PO BID #20 tab 01/13/17 Unknown Rx 21/Iron Fu/Folic Acid 1 each PO DAILY #30 tablet 02/15/20 Unknown Rx [ Complete Caplet] Amoxicillin/Potassium Clav 1 each PO BID 5 Days #10 tablet 07/17/20 Unknown Rx [Augmentin 875-125 Tablet] Nitrofurantoin [place]/M-Cryst 100 mg PO Q12HR #14 capsule 08/23/20 Unknown Rx [Macrobid CAP] Vit-Fe Fumar-FA [ 1 tab PO QDAY #90 tablet 08/23/20 Unknown Rx Vitamin] Ibuprofen [Motrin 800 MG tab] 800 mg PO Q8HR PRN #15 tablet 09/15/20 Unknown Rx oxyCODONE /ACETAMINOPHEN [Percocet 1 tab PO Q6HR PRN #10 tablet 09/15/20 Unknown Rx 5/325] Allergies Allergy/AdvReac Type Severity Reaction Status Date / Time No Known Allergies Allergy Verified 11/18/20 10:06 ED Review of Systems ROS: Stated complaint: BODYACHES Other details as noted in HPI Comment: All other systems reviewed and negative ED Past Medical Hx - Past Medical History Previous Medical History?: No - Surgical History Past Surgical History?: No Additional Surgical History: right ankle - Social History Smoking Status: Never Smoker Substance Use Type: None - Medications Home Medications: Home Medications Medication Instructions Recorded Confirmed Last Taken Type Naproxen [Naprosyn] 500 mg PO BID #30 tablet 01/13/17 Unknown Rx methOCARBAMOL [Robaxin TAB] 500 mg PO BID #20 tab 01/13/17 Unknown Rx 21/Iron Fu/Folic Acid 1 each PO DAILY #30 tablet 02/15/20 Unknown Rx [ Complete Caplet] Amoxicillin/Potassium Clav 1 each PO BID 5 Days #10 tablet 07/17/20 Unknown Rx [Augmentin 875-125 Tablet] Nitrofurantoin [place]/M-Cryst 100 mg PO Q12HR #14 capsule 08/23/20 Unknown Rx [Macrobid CAP] Vit-Fe Fumar-FA [ 1 tab PO QDAY #90 tablet 08/23/20 Unknown Rx Vitamin] Ibuprofen [Motrin 800 MG tab] 800 mg PO Q8HR PRN #15 tablet 09/15/20 Unknown Rx oxyCODONE /ACETAMINOPHEN [Percocet 1 tab PO Q6HR PRN #10 tablet 09/15/20 Unknown Rx 5/325] ED Physical Exam - General Limitations: No Limitations General appearance: alert, in no apparent distress - Head Head exam: Present: atraumatic, normocephalic - Eye Eye exam: Present: normal appearance - ENT ENT exam: Present: mucous membranes moist - Respiratory Respiratory exam: Present: normal lung sounds bilaterally. Absent: respiratory distress, wheezes, rales, rhonchi, stridor, chest wall tenderness, accessory m uscle use, decreased breath sounds, prolonged expiratory - Cardiovascular Cardiovascular Exam: Present: normal rhythm, tachycardia, normal heart sounds. Absent: systolic murmur, diastolic murmur, rubs, gallop - GI/Abdominal GI/Abdominal exam: Present: soft, tenderness (generalized lower abd ttp, LLQ, RLQ, suprapubic ), normal bowel sounds. Absent: distended, guarding, rebound, rigid - Neurological Exam Neurological exam: Present: alert, oriented X3 - Psychiatric Psychiatric exam: Present: normal affect, normal mood - Skin Skin exam: Present: warm, dry, intact ED Course Vital Signs 11/18/20 11/18/20 11/18/20 10:06 10:29 10:31 Temperature 102.2 F H Pulse Rate 144 H 115 H 130 H Respiratory 20 19 22 Rate Blood Pressure 145/54 113/74 113/74 O2 Sat by Pulse 100 99 99 Oximetry 11/18/20 11/18/20 11/18/20 10:45 11:01 11:31 Temperature Pulse Rate 122 H 112 H 101 H Respiratory 23 20 22 Rate Blood Pressure 109/73 110/63 105/73 O2 Sat by Pulse 98 97 98 Oximetry 11/18/20 11/18/20 11/18/20 11:46 12:01 12:31 Temperature 98.7 F Pulse Rate 90 81 Respiratory 17 27 H Rate Blood Pressure 110/71 102/64 O2 Sat by Pulse 98 98 Oximetry 11/18/20 11/18/20 11/18/20 13:01 13:31 14:00 Temperature Pulse Rate 85 75 90 Respiratory 17 16 19 Rate Blood Pressure 102/64 103/66 110/71 O2 Sat by Pulse 99 98 Oximetry 11/18/20 11/18/20 11/18/20 14:31 15:01 15:11 Temperature Pulse Rate 72 66 69 Respiratory 16 25 H 23 Rate Blood Pressure 106/62 103/59 103/59 O2 Sat by Pulse 99 100 99 Oximetry 11/18/20 11/18/20 11/18/20 15:21 15:31 15:41 Temperature Pulse Rate 68 75 69 Respiratory 18 19 22 Rate Blood Pressure 88/52 88/52 88/52 O2 Sat by Pulse 100 100 100 Oximetry - Reevaluation(s) Reevaluation #1: 11/18/20 13:20 Dr. Yee ER attending aware of patient advises admission - Consultations Consultation #1: 11/18/20 13:[address] Duval, hospitalist who advised that pt would likely needs procedural intervention, advised consulting urology 11/18/20 13:[address] Musa, urology he will consult and follow patient, advised IR consultation 11/18/20 13:[address] Stack, IR/vascular surgeon, he will review CT images and call back 11/18/20 13:[address] Stack, IR/vascular surgeon, advised does not need IR intervention at this time, recommended IV abx and potential reimaging in a couple days, admit to hospitalist servic 11/18/20 14:[address] Duval, hospitalist will accept emergency room care of patient, will admit to hospital service ED Medical Decision Making - Lab Data Result diagrams: 11/18/20 10:28 11/18/20 10:28 Lab Results 11/18/20 11/18/20 11/18/20 Range/Units 10:28 10:28 10:28 WBC 10.2 (4.5-11.0) K/mm3 RBC 4.44 (3.65-5.03) M/mm3 Hgb 13.4 (10.1-14.3) gm/dl Hct 39.7 (30.3-42.9) % MCV 90 (79-97) fl MCH 30 (28-32) pg MCHC 34 (30-34) % RDW 14.1 (13.2-15.2) % Plt Count 242 (140-440) K/mm3 Lymph % (Auto) 11.2 L (13.4-35.0) % [place] % (Auto) 10.7 H (0.0-7.3) % Eos % (Auto) 0.0 (0.0-4.3) % Baso % (Auto) 0.2 (0.0-1.8) % Lymph # (Auto) 1.1 L (1.2-5.4) K/mm3 [place] # (Auto) 1.1 H (0.0-0.8) K/mm3 Eos # (Auto) 0.0 (0.0-0.4) K/mm3 Baso # (Auto) 0.0 (0.0-0.1) K/mm3 Seg Neutrophils % 77.9 H (40.0-70.0) % Seg Neutrophils # 7.9 H (1.8-7.7) K/mm3 Sodium 132 L (137-145) mmol/L Potassium 3.4 L (3.6-5.0) mmol/L Chloride 97.4 L (98-107) mmol/L Carbon Dioxide 23 (22-30) mmol/L Anion Gap 15 mmol/L BUN 8 (7-17) mg/dL Creatinine 0.9 (0.6-1.2) mg/dL Estimated GFR > 60 ml/min BUN/Creatinine Ratio 9 % Glucose 139 H (65-100) mg/dL Lactic Acid 1.60 (0.7-2.0) mmol/L Calcium 9.1 (8.4-10.2) mg/dL Total Bilirubin 0.40 (0.1-1.2) mg/dL AST 11 (5-40) units/L ALT 8 (7-56) units/L Alkaline Phosphatase 48 (35-129) units/L Total Protein 7.8 (6.3-8.2) g/dL Albumin 3.5 L (3.9-5) g/dL Albumin/Globulin Ratio 0.8 % Lipase 16 (13-60) units/L HCG, Qual (Negative) Urine Color (Yellow) Urine Turbidity (Clear) Urine pH (5.0-7.0) Ur Specific [place] (1.003-1.030) Urine Protein (Negative) mg/dL Urine Glucose (UA) (Negative) mg/dL Urine Ketones (Negative) mg/dL Urine Blood (Negative) Urine Nitrite (Negative) Urine Bilirubin (Negative) Urine Urobilinogen (<2.0) mg/dL Ur Leukocyte Esterase (Negative) Urine WBC (Auto) (0.0-6.0) /HPF Urine RBC (Auto) (0.0-6.0) /HPF U Epithel Cells (Auto) (0-13.0) /HPF Urine Bacteria (Auto) (Negative) /HPF Ur Transition Epith Cell /HPF Urine Mucus /HPF 11/18/20 11/18/20 Range/Units 11:37 Unknown WBC (4.5-11.0) K/mm3 RBC (3.65-5.03) M/mm3 Hgb (10.1-14.3) gm/dl Hct (30.3-42.9) % MCV (79-97) fl MCH (28-32) pg MCHC (30-34) % RDW (13.2-15.2) % Plt Count (140-440) K/mm3 Lymph % (Auto) (13.4-35.0) % [place] % (Auto) (0.0-7.3) % Eos % (Auto) (0.0-4.3) % Baso % (Auto) (0.0-1.8) % Lymph # (Auto) (1.2-5.4) K/mm3 [place] # (Auto) (0.0-0.8) K/mm3 Eos # (Auto) (0.0-0.4) K/mm3 Baso # (Auto) (0.0-0.1) K/mm3 Seg Neutrophils % (40.0-70.0) % Seg Neutrophils # (1.8-7.7) K/mm3 Sodium (137-145) mmol/L Potassium (3.6-5.0) mmol/L Chloride (98-107) mmol/L Carbon Dioxide (22-30) mmol/L Anion Gap mmol/L BUN (7-17) mg/dL Creatinine (0.6-1.2) mg/dL Estimated GFR ml/min BUN/Creatinine Ratio % Glucose (65-100) mg/dL Lactic Acid (0.7-2.0) mmol/L Calcium (8.4-10.2) mg/dL Total Bilirubin (0.1-1.2) mg/dL AST (5-40) units/L ALT (7-56) units/L Alkaline Phosphatase (35-129) units/L Total Protein (6.3-8.2) g/dL Albumin (3.9-5) g/dL Albumin/Globulin Ratio % Lipase (13-60) units/L HCG, Qual Negative (Negative) Urine Color [place] (Yellow) Urine Turbidity Cloudy (Clear) Urine pH 5.0 (5.0-7.0) Ur Specific [place] 1.019 (1.003-1.030) Urine Protein 100 mg/dl (Negative) mg/dL Urine Glucose (UA) Neg (Negative) mg/dL Urine Ketones Tr (Negative) mg/dL Urine Blood Neg (Negative) Urine Nitrite Pos (Negative) Urine Bilirubin Neg (Negative) Urine Urobilinogen 2.0 (<2.0) mg/dL Ur Leukocyte Esterase Mod (Negative) Urine WBC (Auto) 108.0 H (0.0-6.0) /HPF Urine RBC (Auto) 7.0 (0.0-6.0) /HPF U Epithel Cells (Auto) 26.0 H (0-13.0) /HPF Urine Bacteria (Auto) 4+ (Negative) /HPF Ur Transition Epith Cell 1 /HPF Urine Mucus 3+ /HPF Vital Signs 11/18/20 11/18/20 11/18/20 10:06 10:29 10:31 Temperature 102.2 F H Pulse Rate 144 H 115 H 130 H Respiratory 20 19 22 Rate Blood Pressure 145/54 113/74 113/74 O2 Sat by Pulse 100 99 99 Oximetry 11/18/20 11/18/20 11/18/20 10:45 11:01 11:31 Temperature Pulse Rate 122 H 112 H 101 H Respiratory 23 20 22 Rate Blood Pressure 109/73 110/63 105/73 O2 Sat by Pulse 98 97 98 Oximetry 11/18/20 11:46 Temperature 98.7 F Pulse Rate Respiratory Rate Blood Pressure O2 Sat by Pulse Oximetry - Radiology Data Radiology results: report reviewed Ordering Physician: MARGARET FERRER Date of Service: 11/18/20 Procedure(s): CT abdomen pelvis w con Accession Number(s): [id number] cc: MARGARET FERRER CT ABDOMEN AND PELVIS WITH CONTRAST INDICATION / CLINICAL INFORMATION: Lower abdominal pain, lower back pain, fever x2 days. TECHNIQUE: Axial CT images were obtained through the abdomen and pelvis after 100 cc Omnipaque [address] scans at this location are performed using CT dose reduction for ALARA by means of automated exposure control. COMPARISON: None available. FINDINGS: LOWER CHEST: No significant abnormality. LIVER: No significant abnormality. GALLBLADDER: No significant abnormality. BILE DUCTS: No significant abnormality. PANCREAS: No significant abnormality. SPLEEN: No significant abnormality. ADRENALS: No significant abnormality. RIGHT KIDNEY / URETER: A solid hypodense lesion is present along the mid/lower poles of the right kidney on images 77 through 86 of series 2 measuring up to approximately 2.5 cm in axial dimension on image 77 of series 2 with a craniocaudal dimension of 2.5 cm . There is generalized urothelial enhancement along the renal collecting system and ureter. No other significant abnormality. LEFT KIDNEY / URETER: No significant abnormality. STOMACH / SMALL BOWEL: No significant abnormality. COLON: No significant abnormality. APPENDIX: Not well-visualized. No suspicious inflammation in the right lower quadrant to suggest acute appendicitis. PERITONEUM: No free fluid. No free air. No fluid collection. LYMPH NODES: No significant adenopathy. AORTA / ARTERIES: No significant abnormality. IVC / VEINS: No significant abnormality. URINARY BLADDER: No significant abnormality. REPRODUCTIVE ORGANS: No significant abnormality. ADDITIONAL FINDINGS: None. SKELETAL SYSTEM: No significant abnormality. IMPRESSION: Suspected right pyelonephritis as described above with secondary right renal abscess. A follow-up CT abdomen with contrast in one month is recommended. Signer Name: Barry Bruner MD Signed: 11/18/2020 1:13 PM Workstation Name: [id number] Transcribed By: [place] Dictated By: Barry Bruner MD Electronically Authenticated By: Barry Bruner MD Signed Date/Time: 11/18/20 1313 DD/ 1306 TD/TT: - Medical Decision Making pt is a 25 yo female who presents to the ED with c/o lower abd pain and lower back pain that began two days ago. she has associated urinary frequency, urinary urgency, and odor to her urine. she states she has been taking azo over the counter. she states she also has right ear discomfort. she has chills, fever, and body aches. she denies any n/v/d, dysuria, abnormal vaginal discharge, melena, hematemesis, hematochezia, CP, or SOB. pt denies pmhx. no allergies to meds. LNMP 11/10/2020. initial vitals with elevated HR and temperature which improved upon repeat. Labs with mild dehydration, otherwise stable. hCG is negative. UA shows evidence of significant UTI. CT abdomen pelvis with IV contrast Suspected right pyelonephritis as described above with secondary right renal abscess. A follow-up CT abdomen with contrast in one month is recommended. Sepsis protocol was initiated during triage given tachycardia and febrile, patient was given 30 cc/kg bolus and Zosyn. spoke with Dr. Musa, urology he will consult and follow patient, advised IR consultation. spoke with Dr. Stack, IR/vascular surgeon, advised does not need IR intervention at this time, recommended IV abx and potential reimaging in a couple days, admit to hospitalist service. Spoke with Dr. Duval, hospitalist will accept emergency room care of patient, will admit to hospital service. Spoke with Dr. Yee, ER attending who is agreeable to plan. Critical care attestation.: If time is entered above; I have spent that time in minutes in the direct care of this critically ill patient, excluding procedure time. ED Disposition Clinical Impression: Pyelonephritis, Renal abscess, right, SIRS (systemic inflammatory response syndrome) Disposition: OP ADMIT IP TO THIS HOSP Is pt being admited?: Yes Does the pt Need Aspirin: No Condition: Stable
[2020-11-18 10:44] LABS: Bacteria,Urine 4+ /HPF (Negative); Bilirubin,Urine NEG (Negative); Blood,Urine NEG (Negative); Color,Urine Amber (Yellow); Mucus,Urine 3+ /HPF
[2020-11-18 11:14] LABS: Alanine Aminotransferase 8 units/L (7-56); Albumin 3.5 g/dL (3.9-5); BUN/Creatinine Ratio 9; Blood Urea Nitrogen 8 mg/dL (7-17); Calcium 9.1 mg/dL (8.4-10.2); Hemolysis Index 1
[2020-11-18 11:34] LABS: Basophils % (Auto) 0.2 % (0.0-1.8); Hematocrit 39.7 % (30.3-42.9); Hemoglobin 13.4 gm/dl (10.1-14.3); Lymphocytes # (Auto) 1.1 K/mm3 (1.2-5.4); Lymphocytes % (Auto) 11.2 % (13.4-35.0); Mean Corpuscular HGB Conc 34 % (30-34); Mean Corpuscular Volume 90 fl (79-97); Monocytes # (Auto) 1.1 K/mm3 (0.0-0.8); Monocytes % (Auto) 10.7 % (0.0-7.3); Platelet Count 242 K/mm3 (140-440); Red Blood Count 4.44 M/mm3 (3.65-5.03); Red Cell Distribution Width 14.1 % (13.2-15.2)
--- NOTE | 2020-11-18 13:18 | Cat Scan Report ---
CT ABDOMEN AND PELVIS WITH CONTRAST INDICATION / CLINICAL INFORMATION: Lower abdominal pain, lower back pain, fever x2 days. TECHNIQUE: Axial CT images were obtained through the abdomen and pelvis after 100 cc Omnipaque [address] scans at this location are performed using CT dose reduction for ALARA by means of automated exposure control. COMPARISON: None available. FINDINGS: LOWER CHEST: No significant abnormality. LIVER: No significant abnormality. GALLBLADDER: No significant abnormality. BILE DUCTS: No significant abnormality. PANCREAS: No significant abnormality. SPLEEN: No significant abnormality. ADRENALS: No significant abnormality. RIGHT KIDNEY / URETER: A solid hypodense lesion is present along the mid/lower poles of the right kid milagros on images 77 through 86 of series 2 measuring up to approximately 2.5 cm in axial dimension on im age 78 of series 2 with a craniocaudal dimension of 2.5 cm . There is generalized urothelial enhancem ent along the renal collecting system and ureter. No other significant abnormality. LEFT KIDNEY / URETER: No significant abnormality. STOMACH / SMALL BOWEL: No significant abnormality. COLON: No significant abnormality. APPENDIX: Not well-visualized. No suspicious inflammation in the right lower quadrant to suggest acut e appendicitis. PERITONEUM: No free fluid. No free air. No fluid collection. LYMPH NODES: No significant adenopathy. AORTA / ARTERIES: No significant abnormality. IVC / VEINS: No significant abnormality. URINARY BLADDER: No significant abnormality. REPRODUCTIVE ORGANS: No significant abnormality. ADDITIONAL FINDINGS: None. SKELETAL SYSTEM: No significant abnormality. IMPRESSION: Suspected right pyelonephritis as described above with secondary right renal abscess. A follow-up CT abdomen with contrast in one month is recommended. Signer Name: Barry Bruner MD Signed: 11/18/2020 1:13 PM Workstation Name: [id number]
[2020-11-18] MEDS ORDERED: ONDANSETRON 4 MG/2 ML INJ IV PRN (14:04)
[2020-11-18] MEDS ORDERED: ALBUTEROL 2.5 MG/3 ML NEBU IH PRN (14:04)
[2020-11-18] MEDS ORDERED: MORPHINE 4 MG/1 ML INJ IV PRN (14:04)
--- NOTE | 2020-11-18 14:04 | History and Physical Report ---
History of Present Illness Chief complaint: My side hurts History of present illness: 25 YO Female with NO PMH presents to ED for evaluation. Patient reports "my side hurts. Patient states that she has experienced right flank pain over the past 2 days with persistently worsening symptoms over the same timeframe. René bernal acknowledges dysuria, urgency, frequency, pain with urination. Patient reports taking multiple [id number] remedies with no improvement of symptoms. Patient also acknowledges fever, shaking chills, body aches. Patient transported to [facility] via private vehicle for further care and evaluation of the aforementioned symptoms. Patient seen and evaluated in the emergency department. All lab and imaging studies reviewed. Patient found to have fever to 102.2 F, tachycardia with a heart rate in the 140s. Patient found to have urinary tract infection complicated by right renal abscess as well as sepsis. Urology team consulted in ED. Interventional radiology team consulted in ED. Patient admitted to surgical floor and initiated on sepsis protocol. Patient denies chest pain, palpitations, trauma, productive cough, skin rash, recent ill contacts, or known exposure to COVID-19. No prior admission for review. All medication listed at time of admission has been reconciled. Past History Past Medical History: No medical history, other (Reviewed) Past Surgical History: Other (Right ankle surgery) Social history: single. denies: smoking, alcohol abuse, prescription drug abuse Family history: no significant family history, other (Reviewed) Medications and Allergies Allergies Allergy/AdvReac Type Severity Reaction Status Date / Time No Known Allergies Allergy Verified 11/18/20 10:06 Home Medications Medication Instructions Recorded Confirmed Last Taken Type Naproxen [Naprosyn] 500 mg PO BID #30 tablet 01/13/17 Unknown Rx methOCARBAMOL [Robaxin TAB] 500 mg PO BID #20 tab 01/13/17 Unknown Rx 21/Iron Fu/Folic Acid 1 each PO DAILY #30 tablet 02/15/20 Unknown Rx [ Complete Caplet] Amoxicillin/Potassium Clav 1 each PO BID 5 Days #10 tablet 07/17/20 Unknown Rx [Augmentin 875-125 Tablet] Nitrofurantoin [place]/M-Cryst 100 mg PO Q12HR #14 capsule 08/23/20 Unknown Rx [Macrobid CAP] Vit-Fe Fumar-FA [ 1 tab PO QDAY #90 tablet 08/23/20 Unknown Rx Vitamin] Ibuprofen [Motrin 800 MG tab] 800 mg PO Q8HR PRN #15 tablet 09/15/20 Unknown Rx oxyCODONE /ACETAMINOPHEN [Percocet 1 tab PO Q6HR PRN #10 tablet 09/15/20 Unknown Rx 5/325] Review of Systems Constitutional: fever, chills, weakness, no weight loss, no night sweats Ears, nose, mouth and throat: no ear pain, no ear discharge, no tinnitis, no decreased hearing, no nasal congestion, no nasal discharge Cardiovascular: no chest pain, no orthopnea, no rapid/irregular heart beat, no edema, no syncope, no lightheadedness Respiratory: no cough, no cough with sputum, no excessive sputum, no hemoptysis, no shortness of breath, no dyspnea on exertion Gastrointestinal: no abdominal pain, no diarrhea, no hematemesis Genitourinary Female: flank pain, dysuria, urinary frequency, no stress incontinence, no difficulty voiding, no hematuria Menstruation: no currently menstrual Rectal: no pain, no incontinence Musculoskeletal: no neck pain, no low back pain, no shooting leg pain, no leg numbness/tingling Integumentary: no rash, no redness, no sores, no wounds, no jaundice, no boils Neurological: no head injury, no transient paralysis, no weakness, no numbness, no tingling, no syncope, no tremors Psychiatric: no anxiety, no change in sleep habits, no sleep disturbances, no change in appetite, no change in libido, no disorientation Endocrine: no heat intolerance, no polyphagia, no polydipsia, no polyuria, no excessive sweating Hematologic/Lymphatic: no easy bruising, no lymphedema Allergic/Immunologic: no persistent infections Exam - Constitutional Vitals: Temp Pulse Resp BP Pulse Ox 98.7 F 101 H 22 105/73 98 11/18/20 11:46 11/18/20 11:31 11/18/20 11:31 11/18/20 11:31 11/18/20 11:31 General appearance: Present: mild distress - EENT Eyes: Present: PERRL ENT: hearing intact, clear oral mucosa - Neck Neck: Present: supple, normal ROM - Respiratory Respiratory effort: normal Respiratory: bilateral: CTA - Cardiovascular Rhythm: other (Tachycardia) Heart Sounds: Present: S1 & S2. Absent: rub, click - Extremities Extremities: pulses symmetrical, No edema Peripheral Pulses: abnormal (Capillary refill greater than 3.5 seconds) - Abdominal General gastrointestinal: Present: soft, non-tender, non-distended, normal bowel sounds Female genitourinary: Present: normal - Integumentary Integumentary: Present: clear, warm, dry - Musculoskeletal Musculoskeletal: gait normal, strength equal bilaterally - Psychiatric Psychiatric: appropriate mood/affect, intact judgment & insight - Neurologic Neurologic: CNII-XII intact, moves all extremities Results - Labs CBC & Chem 7: 11/18/20 10:28 11/18/20 10:28 Labs: Abnormal lab results 11/18/20 11/18/20 11/18/20 Range/Units 10:28 10:28 Unknown Lymph % (Auto) 11.2 L (13.4-35.0) % [place] % (Auto) 10.7 H (0.0-7.3) % Lymph # (Auto) 1.1 L (1.2-5.4) K/mm3 [place] # (Auto) 1.1 H (0.0-0.8) K/mm3 Seg Neutrophils % 77.9 H (40.0-70.0) % Seg Neutrophils # 7.9 H (1.8-7.7) K/mm3 Sodium 132 L (137-145) mmol/L Potassium 3.4 L (3.6-5.0) mmol/L Chloride 97.4 L (98-107) mmol/L Glucose 139 H (65-100) mg/dL Albumin 3.5 L (3.9-5) g/dL Urine WBC (Auto) 108.0 H (0.0-6.0) /HPF U Epithel Cells (Auto) 26.0 H (0-13.0) /HPF Assessment and Plan - Patient Problems (1) Sepsis Current Visit: Yes Status: Acute Plan to address problem: Sepsis protocol: IV antibiotic therapy, chest x-ray, urinalysis, CBC, repeat CBC in a.m., IV fluid resuscitation therapy, monitor urine output every shift, maintain mean arterial pressure greater than or equal to 65, serial lactic acid level, blood cultures. (2) Pyelonephritis Current Visit: Yes Status: Acute Plan to address problem: CT scan abdomen and pelvis, urinalysis, IV antibiotic therapy, supportive care, urology consulted in ED. (3) Renal abscess, right Current Visit: Yes Status: Acute Plan to address problem: IV antibiotic therapy, supportive care, repeat CT scan in a.m., abscess is small and not amenable to intervention at this time. Repeat CT scan in a.m. (4) DVT prophylaxis Current Visit: Yes Status: Acute Plan to address problem: SCD to bilateral lower extremities while in bed, patient is ambulatory.
[2020-11-18] MEDS ORDERED: ACETAMINOPHEN 325 MG TAB PO PRN (14:07)
[2020-11-18] MEDS: HYDROmorphone 1 MG/1 ML INJ IV PRN ×3 (14:22→23:53)
[2020-11-18] MEDS: CEFEPIME/NS 2 GM/100 ML 2 GM/100 ML BAG IV SCH (15:13)
[2020-11-18] MEDS: ACETAMINOPHEN 325 MG TAB PO PRN (20:03)
--- NOTE | 2020-11-18 20:33 | Event Note ---
Date: 11/18/20 Patient found to have urinary tract infection complicated by right renal abscess as well as sepsis. CT--2.5cm rt abscess consulted in ED - OBS Interventional radiology team consulted in ED.
[2020-11-19] MEDS: CEFEPIME/NS 2 GM/100 ML 2 GM/100 ML BAG IV SCH ×2 (02:35→15:47)
[2020-11-19 06:26] LABS: Hematocrit 32.3 % (30.3-42.9); Hemoglobin 11.2 gm/dl (10.1-14.3); Mean Corpuscular HGB Conc 35 % (30-34); Mean Corpuscular Volume 87 fl (79-97); Platelet Count 225 K/mm3 (140-440); Red Cell Distribution Width 13.8 % (13.2-15.2)
[2020-11-19 06:39] LABS: Alanine Aminotransferase 9 units/L (7-56); BUN/Creatinine Ratio 6; Blood Urea Nitrogen 5 mg/dL (7-17); Calcium 8.4 mg/dL (8.4-10.2); Hemolysis Index 0
[2020-11-19 07:10] LABS: Total Cells Counted 100
[2020-11-19 07:12] LABS: Hypochromasia 1+; Macrocytosis Few; Platelet Estimate Consistent w Auto; Target Cells Few
[2020-11-19] MEDS: HYDROmorphone 1 MG/1 ML INJ IV PRN ×2 (07:51→22:04)
[2020-11-19] MEDS: ACETAMINOPHEN 325 MG TAB PO PRN (07:53)
--- NOTE | 2020-11-19 09:59 | Consultation ---
History of Present Illness - Reason for Consult Consult date: 11/19/20 Right renal abscess, right pyelonephritis - History of Present Illness Patient with a history of urinary tract infection who presents complaining of malaise and right flank pain. CT of the abdomen and pelvis was performed. This demonstrates an area of decreased attenuation in the inferior pole of the right kidney consistent with developing renal abscess. No drainable fluid is identified. There is no hydronephrosis. Patient has no history of renal stones. On examination today, the patient is feeling marginally better than on presentation. Past History Past Medical History: No medical history, other (Reviewed) Past Surgical History: Other (Right ankle surgery) Social history: single. denies: smoking, alcohol abuse, prescription drug abuse Family history: no significant family history, other (Reviewed) Medications and Allergies Allergies Allergy/AdvReac Type Severity Reaction Status Date / Time No Known Allergies Allergy Verified 11/18/20 10:06 Home Medications Medication Instructions Recorded Confirmed Last Taken Type Naproxen [Naprosyn] 500 mg PO BID #30 tablet 01/13/17 Unknown Rx methOCARBAMOL [Robaxin TAB] 500 mg PO BID #20 tab 01/13/17 Unknown Rx 21/Iron Fu/Folic Acid 1 each PO DAILY #30 tablet 02/15/20 Unknown Rx [ Complete Caplet] Amoxicillin/Potassium Clav 1 each PO BID 5 Days #10 tablet 07/17/20 Unknown Rx [Augmentin 875-125 Tablet] Nitrofurantoin [place]/M-Cryst 100 mg PO Q12HR #14 capsule 08/23/20 Unknown Rx [Macrobid CAP] Vit-Fe Fumar-FA [ 1 tab PO QDAY #90 tablet 08/23/20 Unknown Rx Vitamin] Ibuprofen [Motrin 800 MG tab] 800 mg PO Q8HR PRN #15 tablet 09/15/20 Unknown Rx oxyCODONE /ACETAMINOPHEN [Percocet 1 tab PO Q6HR PRN #10 tablet 09/15/20 Unknown Rx 5/325] Active Meds: Active Medications Acetaminophen (Acetaminophen 325 Mg Tab) 650 mg PO Q4H PRN PRN Reason: Pain MILD(1-3)/Fever >100.5/ASHBY Last Admin: 11/19/20 07:53 Dose: 650 mg Documented by: Albuterol (Albuterol 2.5 Mg/3 Ml Nebu) 2.5 mg IH Q4HRT PRN PRN Reason: Shortness Of Breath Hydromorphone HCl (Hydromorphone 1 Mg/1 Ml Inj) 0.25 mg IV Q4H PRN PRN Reason: Pain, Moderate (4-6) Last Admin: 11/19/20 07:51 Dose: 0.25 mg Documented by: Cefepime HCl (Cefepime/Ns 2 Gm/100 Ml) 2 gm in 100 mls @ 200 mls/hr IV Q12H [facility]; Protocol Last Admin: 11/19/20 02:35 Dose: 200 mls/hr Documented by: Morphine Sulfate (Morphine 4 Mg/1 Ml Inj) 2 mg IV Q6H PRN PRN Reason: Pain , Severe (7-10) Last Admin: 11/19/20 03:28 Dose: 2 mg Documented by: Ondansetron HCl (Ondansetron 4 Mg/2 Ml Inj) 4 mg IV Q8H PRN PRN Reason: Nausea And Vomiting Last Admin: 11/18/20 14:22 Dose: 4 mg Documented by: Oxycodone/Acetaminophen (Oxycodone /Acetaminophen 5-325mg Tab) 1 tab PO Q6H PRN PRN Reason: Pain, Moderate (4-6) Sodium Chloride (Sodium Chloride 0.9% 10 Ml Flush Syringe) 10 ml IV BID [facility] Last Admin: 11/19/20 09:29 Dose: 10 ml Documented by: Sodium Chloride (Sodium Chloride 0.9% 10 Ml Flush Syringe) 10 ml IV PRN PRN PRN Reason: LINE FLUSH Review of Systems All systems: negative Exam - Constitutional Vitals: Temp Pulse Resp BP Pulse Ox 98.8 F 103 H 20 116/65 98 11/19/20 09:29 11/19/20 07:29 11/19/20 07:53 11/19/20 07:29 11/19/20 07:29 General appearance: Present: no acute distress - EENT Eyes: Present: EOM intact ENT: hearing intact - Neck Neck: Present: supple, normal ROM - Respiratory Respiratory effort: normal - Abdominal General gastrointestinal: Present: deferred Female genitourinary: Present: deferred - Rectal Rectal Exam: deferred - Psychiatric Psychiatric: appropriate mood/affect, cooperative Results - Labs CBC & Chem 7: 11/19/20 05:53 11/19/20 05:53 Labs: Abnormal lab results 11/18/20 11/18/20 11/18/20 Range/Units 10:28 10:28 Unknown MCHC (30-34) % Lymph % (Auto) 11.2 L (13.4-35.0) % [place] % (Auto) 10.7 H (0.0-7.3) % Lymph # (Auto) 1.1 L (1.2-5.4) K/mm3 [place] # (Auto) 1.1 H (0.0-0.8) K/mm3 Seg Neutrophils % 77.9 H (40.0-70.0) % Monocytes % (Manual) (0.0-7.3) % Seg Neutrophils # 7.9 H (1.8-7.7) K/mm3 Monocytes # (Manual) (0.0-0.8) K/mm3 Sodium 132 L (137-145) mmol/L Potassium 3.4 L (3.6-5.0) mmol/L Chloride 97.4 L (98-107) mmol/L BUN (7-17) mg/dL Glucose 139 H (65-100) mg/dL Albumin 3.5 L (3.9-5) g/dL Urine WBC (Auto) 108.0 H (0.0-6.0) /HPF U Epithel Cells (Auto) 26.0 H (0-13.0) /HPF 11/19/20 11/19/20 Range/Units 05:53 05:53 MCHC 35 H (30-34) % Lymph % (Auto) (13.4-35.0) % Wilkes % (Auto) (0.0-7.3) % Lymph # (Auto) (1.2-5.4) K/mm3 Wilkes # (Auto) (0.0-0.8) K/mm3 Seg Neutrophils % (40.0-70.0) % Monocytes % (Manual) 16.0 H (0.0-7.3) % Seg Neutrophils # (1.8-7.7) K/mm3 Monocytes # (Manual) 1.3 H (0.0-0.8) K/mm3 Sodium 133 L (137-145) mmol/L Potassium (3.6-5.0) mmol/L Chloride (98-107) mmol/L BUN 5 L (7-17) mg/dL Glucose (65-100) mg/dL Albumin 3.0 L (3.9-5) g/dL Urine WBC (Auto) (0.0-6.0) /HPF U Epithel Cells (Auto) (0-13.0) /HPF - Imaging and Cardiology CT scan - abdomen: report reviewed, image reviewed CT scan - pelvis: report reviewed, image reviewed Assessment and Plan Patient with urinary tract infection and likely ascending infection to the right kidney. No intervention is planned. Patient will need to be treated with antibiotics per primary.
--- NOTE | 2020-11-19 13:31 | Cat Scan Report ---
CT ABDOMEN AND PELVIS WITH CONTRAST HISTORY: MAIN. Concern for renal abscess, side unspecified COMPARISON: CT abdomen/pelvis from yesterday TECHNIQUE: CT images of the abdomen and pelvis were obtained following administration of intravenous contrast. All CT scans at this location are performed using CT dose reduction for ALARA by means of automated exposure control. CONTRAST: 100 ml of intravenous contrast administered. FINDINGS: Lungs/bones: Lung bases are clear. No acute osseous abnormality. Abdomen/pelvis: The liver, gallbladder, spleen, pancreas, adrenals, left kidney, and proximal GI tra ct appear unremarkable. There is again abnormal urothelial enhancement along the right ureter with adjacent stranding and als o a vague hypodensity in the right lower pole which was previously questioned to represent possible e paolo abscess formation. There has been no significant interval change in any of these findings. Urinary bladder and reproductive organs are unremarkable with a small right ovarian cyst which is sim ple in appearance. No pelvic free fluid or acute colonic abnormality identified. Appendix is not well seen on this exam. IMPRESSION: 1. No change in appearance of right-sided pyelonephritis and possible evolving renal abscess since . Signer Name: Desean Gonzáles MD Signed: 11/19/2020 1:27 PM Workstation Name: [id number]
--- NOTE | 2020-11-19 13:37 | Progress Note ---
Assessment and Plan (1) Sepsis Current Visit: Yes Status: Acute Plan to address problem: Sepsis protocol: IV antibiotic therapy, chest x-ray, urinalysis, CBC, repeat CBC in a.m., IV fluid resuscitation therapy, monitor urine output every shift, maintain mean arterial pressure greater than or equal to 65, serial lactic acid level, blood cultures. (2) Pyelonephritis, right Current Visit: Yes Status: Acute Plan to address problem: CT scan abdomen and pelvis on admission showed: Suspected right pyelonephritis with secondary right renal abscess. Continue IV antibiotic therapy, supportive care, urology consulted in ED. (3) Renal abscess, right Current Visit: Yes Status: Acute Plan to address problem: IV antibiotic therapy, supportive care, repeat CT scan today, abscess is small and not amenable to intervention at this time. (4) DVT prophylaxis Current Visit: Yes Status: Acute Plan to address problem: SCD to bilateral lower extremities while in bed, patient is ambulatory. Daily course: 11/19/20; c/o severe pain, cont iv abx, iv pain mx, follow cx result CT abdomen pelvis today showed: 1. No change in appearance of right-sided pyelo nephritis and possible evolving renal abscess since yesterday. Subjective Date of service: 11/19/20 Interval history: Patient seen and examined. Medical records and medication list reviewed. No acute event overnight noted by the RN. Patient denies any chest pain or difficulty breathing. Patient is tolerating diet. Complaints of severe right-sided lumbar/abdominal pain Discussed plan of care at bedside with patient. Objective - Exam Narrative Exam: GENERAL: well-developed and well-nourished lying on bed appeared to be in no discomfort. HEENT: Normocephalic. Atraumatic. No conjunctival congestion or icterus. Patient has moist mucous membranes. NECK: Supple. Trachea midline. CHEST/LUNGS: Clear to auscultated bilaterally, breathing nonlabored. No wheezes crackles or rhonchi. HEART/CARDIOVASCULAR: Regular in rate and rhythm. S1 and S2 positive. ABDOMEN: Abdomen is soft, right CVA tenderness. Patient has normal bowel sounds. SKIN: There is no rash. Warm and dry. NEURO: No focal motor deficit. Follows command. MUSCULOSKELETAL: No joint effusion or tenderness. EXTRIMITY: No edema, no cyanosis or clubbing. PSYCH: Cooperative. - Constitutional Vitals: Vital Signs - 12hr 11/19/20 11/19/20 11/19/20 03:35 07:29 07:43 Temperature 99.7 F H 102 F H Pulse Rate 99 H 103 H Respiratory 18 18 Rate Blood Pressure 116/65 Blood Pressure 125/71 [Right] O2 Sat by Pulse 99 98 Oximetry 11/19/20 11/19/20 11/19/20 07:51 07:53 09:29 Temperature 98.8 F Pulse Rate Respiratory 20 20 Rate Blood Pressure Blood Pressure [Right] O2 Sat by Pulse Oximetry 11/19/20 11/19/20 10:00 10:14 Temperature Pulse Rate Respiratory Rate Blood Pressure Blood Pressure [Right] O2 Sat by Pulse 97 100 Oximetry - Labs CBC & Chem 7: 11/19/20 05:53 11/19/20 05:53 Labs: Abnormal lab results 11/19/20 11/19/20 Range/Units 05:53 05:53 MCHC 35 H (30-34) % Monocytes % (Manual) 16.0 H (0.0-7.3) % Monocytes # (Manual) 1.3 H (0.0-0.8) K/mm3 Sodium 133 L (137-145) mmol/L BUN 5 L (7-17) mg/dL Albumin 3.0 L (3.9-5) g/dL
[2020-11-19] MEDS: oxyCODONE /ACETAMINOPHEN 5-325MG TAB PO PRN ×2 (13:41→20:17)
[2020-11-20] MEDS: oxyCODONE /ACETAMINOPHEN 5-325MG TAB PO PRN ×2 (02:11→11:22)
[2020-11-20] MEDS: CEFEPIME/NS 2 GM/100 ML 2 GM/100 ML BAG IV SCH ×2 (02:12→14:03)
[2020-11-20] MEDS: HYDROmorphone 1 MG/1 ML INJ IV PRN ×2 (05:40→14:32)
--- NOTE | 2020-11-20 10:29 | Consultation ---
History of Present Illness - Reason for Consult Consult date: 11/20/20 - History of Present Illness new to our service 25 yr old female with a history of urinary tract infection who presents c omplaining of malaise and right flank pain. CT of the abdomen and pelvis was performed. This demonstrates an area of decreased attenuation in the inferior pole of the right kidney consistent with developing renal abscess. No drainable fluid is identified. There is no hydronephrosis. Patient has no history of renal stones. On examination today, the patient is feeling better. no prevous gu history. abd soft, mild rt flank pain A/P UTI (E.COLI on culture--frausto sensitive) hydrate, home on bactrim, etc 2wks no surgical intervention needed f/u with pcp Past History Past Medical History: No medical history, other (Reviewed) Past Surgical History: Other (Right ankle surgery) Social history: single. denies: smoking, alcohol abuse, prescription drug abuse Family history: no significant family history, other (Reviewed) Medications and Allergies Allergies Allergy/AdvReac Type Severity Reaction Status Date / Time No Known Allergies Allergy Verified 11/18/20 10:06 Home Medications Medication Instructions Recorded Confirmed Last Taken Type Naproxen [Naprosyn] 500 mg PO BID #30 tablet 01/13/17 Unknown Rx methOCARBAMOL [Robaxin TAB] 500 mg PO BID #20 tab 01/13/17 Unknown Rx 21/Iron Fu/Folic Acid 1 each PO DAILY #30 tablet 02/15/20 Unknown Rx [ Complete Caplet] Amoxicillin/Potassium Clav 1 each PO BID 5 Days #10 tablet 07/17/20 Unknown Rx [Augmentin 875-125 Tablet] Nitrofurantoin [place]/M-Cryst 100 mg PO Q12HR #14 capsule 08/23/20 Unknown Rx [Macrobid CAP] Vit-Fe Fumar-FA [ 1 tab PO QDAY #90 tablet 08/23/20 Unknown Rx Vitamin] Ibuprofen [Motrin 800 MG tab] 800 mg PO Q8HR PRN #15 tablet 09/15/20 Unknown Rx oxyCODONE /ACETAMINOPHEN [Percocet 1 tab PO Q6HR PRN #10 tablet 09/15/20 Unknown Rx 5/325] Active Meds: Active Medications Acetaminophen (Acetaminophen 325 Mg Tab) 650 mg PO Q4H PRN PRN Reason: Pain MILD(1-3)/Fever >100.5/ASHBY Last Admin: 11/19/20 07:53 Dose: 650 mg Documented by: Albuterol (Albuterol 2.5 Mg/3 Ml Nebu) 2.5 mg IH Q4HRT PRN PRN Reason: Shortness Of Breath Hydromorphone HCl (Hydromorphone 1 Mg/1 Ml Inj) 0.25 mg IV Q4H PRN PRN Reason: Pain, Moderate (4-6) Last Admin: 11/20/20 05:40 Dose: 0.25 mg Documented by: Cefepime HCl (Cefepime/Ns 2 Gm/100 Ml) 2 gm in 100 mls @ 200 mls/hr IV Q12H [facility]; Protocol Last Admin: 11/20/20 02:12 Dose: 200 mls/hr Documented by: Sodium Chloride (Nacl 0.9% 1000 Ml) 1,000 mls @ 100 mls/hr IV DIRECT [facility] Morphine Sulfate (Morphine 4 Mg/1 Ml Inj) 2 mg IV Q6H PRN PRN Reason: Pain , Severe (7-10) Last Admin: 11/19/20 03:28 Dose: 2 mg Documented by: Ondansetron HCl (Ondansetron 4 Mg/2 Ml Inj) 4 mg IV Q8H PRN PRN Reason: Nausea And Vomiting Last Admin: 11/18/20 14:22 Dose: 4 mg Documented by: Oxycodone/Acetaminophen (Oxycodone /Acetaminophen 5-325mg Tab) 1 tab PO Q6H PRN PRN Reason: Pain, Moderate (4-6) Last Admin: 11/20/20 02:11 Dose: 1 tab Documented by: Sodium Chloride (Sodium Chloride 0.9% 10 Ml Flush Syringe) 10 ml IV BID [facility] Last Admin: 11/19/20 22:05 Dose: 10 ml Documented by: Sodium Chloride (Sodium Chloride 0.9% 10 Ml Flush Syringe) 10 ml IV PRN PRN PRN Reason: LINE FLUSH Exam - Constitutional Vitals: Temp Pulse Resp BP Pulse Ox 98.2 F 59 L 18 97/47 99 11/20/20 08:08 11/20/20 08:08 11/20/20 08:08 11/20/20 08:08 11/20/20 08:08 Results - Labs CBC & Chem 7: 11/19/20 05:53 11/19/20 05:53
[2020-11-20] MEDS ORDERED: SODIUM CHLORIDE 0.9% 1000 ML 1,000 ML IV SCH (10:30)
--- NOTE | 2020-11-20 12:22 | Discharge Summary ---
Providers - Providers Date of Admission: 11/18/20 14:04 Date of discharge: 11/20/20 Attending physician: ANDREA JO 11/18/20 13:43 Consult to Physician [CONS] Stat Comment: Consulting Provider: JOSHUA MUSA Physician Instructions: Reason For Exam: pyelonephritis, renal abscess 11/18/20 13:58 Consult to Physician [CONS] Stat Comment: Consulting Provider: JUAN C FELICIANO Physician Instructions: Reason For Exam: pyelonephritis, right renal abscess Primary care physician: [employer] Hospitalization Condition: Stable Pertinent studies: CT scan abdomen and pelvis 11/18/20 showed: Suspected right pyelonephritis with secondary right renal abscess. CT abdomen pelvis 11/19/20 showed: 1. No change in appearance of right-sided pyelonephritis and possible evolving renal abscess since yesterday. Hospital course: 25 yr old female with a history of urinary tract infection who presented with complaining of malaise and right flank pain. CT of the abdomen and pelvis was performed in the ER which showed an area of decreased attenuation in the inferior pole of the right kidney consistent with developing renal abscess. No drainable fluid is identified. There is no hydronephrosis. Patient has no history of renal stones. Patient was further evaluated by urologist and interventional radiologist. Patient was cleared for discharge by urologist with 2 weeks of Bactrim. Patient was recommended to continue 2 weeks of Bactrim and follow-up with Dr. Musa/urologist as outpatient. Patient was also informed that patient need to come back to the hospital if she develops persistent fever, severe right lumbar pain, hematuria or worsening symptoms. Patient verbalized understanding on and was discharged home in stable condition with outpatient follow-up. Discharge diagnosis: Sepsis with right pyelonephritis and right renal abscess Right pyelonephritis Right renal abscess Mild hypokalemia, repleted Mild hyponatremia, likely due to dehydration okay Disposition: DC-01 TO HOME OR SELFCARE Time spent for discharge: 34 minutes Core Measure Documentation - Palliative Care Palliative Care/ Comfort Measures: Not Applicable - Core Measures Any of the following diagnoses?: none Exam - Physical Exam Narrative exam: GENERAL: well-developed and well-nourished young -[place] female lying on bed appeared to be in no discomfort. HEENT: Normocephalic. Atraumatic. No conjunctival congestion or icterus. Patient has moist mucous membranes. NECK: Supple. Trachea midline. CHEST/LUNGS: Clear to auscultated bilaterally, breathing nonlabored. No wheezes crackles or rhonchi. HEART/CARDIOVASCULAR: Regular in rate and rhythm. S1 and S2 positive. ABDOMEN: Abdomen is soft, Patient has normal bowel sounds. SKIN: There is no rash. Warm and dry. NEURO: No focal motor deficit. Follows command. MUSCULOSKELETAL: No joint effusion or tenderness. EXTRIMITY: No edema, no cyanosis or clubbing. PSYCH: Cooperative. - Constitutional Vitals: Temp Pulse Resp BP Pulse Ox 98.4 F 68 18 101/53 99 11/20/20 11:40 11/20/20 11:40 11/20/20 11:40 11/20/20 11:40 11/20/20 11:40 Plan Activity: advance as tolerated Weight Bearing Status: Weight Bear as Tolerated Diet: regular Follow up with: JOSHUA MUSA MD [Staff Physician] - 7 Days PRIMARY CAREMD [Primary Care Provider] - 3-5 [facility] LUZ MAR[facility] [Referring] - 7 Days Prescriptions: Sulfamethoxazole/Trimethoprim [Bactrim DS TAB] 1 each PO BID #28 tablet oxyCODONE /ACETAMINOPHEN [Percocet 5/325 mg] 1 tab PO Q6H PRN #10 tablet PRN Reason: Pain, Moderate (4-6)
[2020-11-20 17:19] VITALS: BP 104/54
== END 2020-11-20 17:35 | disposition home or self-care (01) | DRG 871 ==
LOC: ED 10:04 → 3B-SURG 14:04
PROVIDERS: ADMIT Internal Medicine; ATTEND Internal Medicine
DX: A41.9 Sepsis, unspecified organism (principal); N15.1 Renal and perinephric abscess; N12 Tubulo-interstitial nephritis, not specified as acute or chronic; E87.1 Hypo-osmolality and hyponatremia; E87.6 Hypokalemia; E86.0 Dehydration; Z79.899 Other long term (current) drug therapy
CPT/HCPCS: 36415; 74177; 80053; 81001; 82140; 83690; 84703; 85007; 85025; 87040; 87076; 87086; 87186; 94640; 96365; 96367; 96375; G0378; J0692; J1170; J2270; J2405; J2543; J7030; J7120; Q9967

== ENCOUNTER 2021-01-09 17:04 | Inpatient (IN) | payer OTHER ==
[2021-01-09] MEDS ORDERED: ACETAMINOPHEN 325 MG TAB ONE (18:04)
[2021-01-09] MEDS ORDERED: ACETAMINOPHEN 325 MG TAB PO ONE (18:06)
[2021-01-09] MEDS ORDERED: SODIUM CHLORIDE 0.9% 1000 ML IV SOLN IV ONE (18:07)
--- NOTE | 2021-01-09 18:07 | Event Note ---
ED Screening Note ED Screening Note: lower back pain x 2 days dx with pyelonephritis and renal abscess last month never followed up no n/v/d +fever no abd pain +headache no dysuria +urinary frequency +dark and odor to urine This initial assessment/diagnostic orders/clinical plan/treatment(s) is/are subject to change based on patients health status, clinical progression and re- assessment by fellow clinical providers in the ED. Further treatment and workup at subsequent clinical providers discretion. Patient/guardian urged not to elope from the ED as their condition may be serious if not clinically assessed and managed. Initial orders include: code sepsis
[2021-01-09 18:28] LABS: Basophils % (Auto) 0.1 % (0.0-1.8); Hemoglobin 13.1 gm/dl (10.1-14.3); Lymphocytes # (Auto) 1.4 K/mm3 (1.2-5.4); Lymphocytes % (Auto) 13.6 % (13.4-35.0); Mean Corpuscular HGB Conc 34 % (30-34); Mean Corpuscular Volume 88 fl (79-97); Monocytes # (Auto) 1.3 K/mm3 (0.0-0.8); Monocytes % (Auto) 12.6 % (0.0-7.3); Platelet Count 197 K/mm3 (140-440); Red Blood Count 4.45 M/mm3 (3.65-5.03); Red Cell Distribution Width 16.7 % (13.2-15.2)
[2021-01-09 18:43] LABS: Alanine Aminotransferase 9 units/L (7-56); Albumin 3.9 g/dL (3.9-5); BUN/Creatinine Ratio 8; Blood Urea Nitrogen 8 mg/dL (7-17); Calcium 9.2 mg/dL (8.4-10.2); Hemolysis Index 3
[2021-01-09] MEDS ORDERED: cefTRIAXone/NS 2 GM/100 ML 2 GM/100 ML BAG IV ONE (21:06)
[2021-01-09] MEDS ORDERED: SODIUM CHLORIDE 0.9% 1000 ML 2,000 ML ONE (21:24)
--- NOTE | 2021-01-09 21:30 | Emergency Department Report ---
ED General Adult HPI - General Chief complaint: Fever Stated complaint: FEVER, BACK PAIN, HEADACHE, BODY ACHE PUI?: No Time Seen by Provider: 01/09/21 18:06 Source: patient, RN notes reviewed, old records reviewed Mode of arrival: Ambulatory Limitations: No Limitations - History of Present Illness Initial comments: The patient was evaluated in the emergency department for symptoms described in the history of present illness. He/she was evaluated in the context of the global COVID-19 pandemic, which necessitated consideration that the patient might be at risk for infection with the virus that causes COVID-19. Institutional protocols and algorithms that pertain to the evaluation of patients at risk for COVID-19 are in a state of rapid change based on information released by regulatory bodies including the CDC and federal and state organizations. These policies and algorithms were followed during the patient's care in the emergency department. Please note that these policies, procedures and recommendations changed on a rapid basis. During the history and physical examination, I am chaperoned by nurse Elizabeth Siddiqi. This is a 25-year-old female. She is not known to myself previously. The patient was admitted to this hospital last month for sepsis secondary to pyelonephritis, and right-sided renal abscess. She had urine cultures that demonstrated E. coli and frausto sensitivity. She was admitted to this hospital for a few days, to the internal medicine service, evaluated by both urology, and vascular surgery, and deemed not to be a surgical/interventional radiology candidate. She was discharged with pain medication, and 2 weeks of Bactrim. The patient states she only took 4 days of Bactrim therapy, because she did not like the way the medication made her feel," I felt like it was making me merlos ucinate." Patient presents to the ER today with a complaint of fever, chills, right lower back pain, Nausea, malaise, dysuria, subjectively feeling like she is having the same symptoms that she had last month. No loss of taste or smell. Mild headache. No chest pain. No shortness of breath. No focal extremity weakness/numbness. Pain is sharp and throbbing, increases with palpation and decreases with rest. -: Gradual, days(s) Location: back, abdomen Radiation: flank Severity scale (0 -10): 10 Quality: aching Improves with: medication, rest Worsens with: movement - Related Data Previous Rx's Medication Instructions Recorded Last Taken Type Sulfamethoxazole/Trimethoprim 1 each PO BID #28 tablet 11/20/20 Unknown Rx [Bactrim DS TAB] oxyCODONE /ACETAMINOPHEN [Percocet 1 tab PO Q6H PRN #10 tablet 11/20/20 Unknown Rx 5/325 mg] Allergies Allergy/AdvReac Type Severity Reaction Status Date / Time No Known Allergies Allergy Verified 01/09/21 17:13 ED Review of Systems ROS: Stated complaint: FEVER, BACK PAIN, HEADACHE, BODY ACHE Other details as noted in HPI Constitutional: chills, fever, malaise, weakness Eyes: denies: eye discharge ENT: denies: epistaxis Respiratory: denies: cough Cardiovascular: denies: chest pain Gastrointestinal: abdominal pain, nausea Genitourinary: dysuria Musculoskeletal: back pain Neurological: headache, weakness Psychiatric: anxiety ED Past Medical Hx - Past Medical History Hx HIV: No - Surgical History Additional Surgical History: right ankle - Social History Smoking Status: Never Smoker Substance Use Type: None - Medications Home Medications: Home Medications Medication Instructions Recorded Confirmed Last Taken Type Sulfamethoxazole/Trimethoprim 1 each PO BID #28 tablet 11/20/20 01/10/21 Unknown Rx [Bactrim DS TAB] oxyCODONE /ACETAMINOPHEN [Percocet 1 tab PO Q6H PRN #10 tablet 11/20/20 01/10/21 Unknown Rx 5/325 mg] ED Physical Exam - General Limitations: No Limitations General appearance: alert, anxious, in distress - Head Head exam: Present: atraumatic, normocephalic - Eye Eye exam: Present: normal appearance, EOMI. Absent: nystagmus - ENT ENT exam: Present: normal exam, normal orophraynx, mucous membranes moist, normal external ear exam - Neck Neck exam: Present: normal inspection, full ROM. Absent: tenderness, meningismus - Respiratory Respiratory exam: Present: normal lung sounds bilaterally. Absent: respiratory distress - Cardiovascular Cardiovascular Exam: Present: normal rhythm, tachycardia, normal heart sounds. Absent: bradycardia, irregular rhythm, systolic murmur, diastolic murmur, rubs, gallop - GI/Abdominal GI/Abdominal exam: Present: soft, tenderness, other (There is right flank tenderness). Absent: distended, guarding, rebound, rigid, pulsatile mass - Extremities Exam Extremities exam: Present: normal inspection, full ROM, other (2+ pulses noted in the bilateral upper and lower extremities. There is no palpable cord. negative Homans sign. Muscular compartments are soft. The pelvis is stable.). Absent: pedal edema, calf tenderness - Back Exam Back exam: Present: normal inspection, CVA tenderness (R). Absent: tenderness, paraspinal tenderness, vertebral tenderness - Neurological Exam Neurological exam: Present: alert, other (No facial droop. Tongue midline. Extraocular movements intact bilaterally. Facial sensation intact to light touch in V1, V2, V3 distribution bilaterally. 5 and a 5 strength in 4 e xtremities. Sensation intact to light touch in 4 extremities.) - Psychiatric Psychiatric exam: Present: anxious - Skin Skin exam: Present: warm, dry, intact, normal color. Absent: rash ED Course Vital Signs 01/09/21 01/09/21 01/09/21 17:10 22:24 22:30 Temperature 102.7 F H Pulse Rate 129 H 92 H 87 Respiratory 24 17 17 Rate Blood Pressure 109/83 107/59 O2 Sat by Pulse 99 100 100 Oximetry 01/09/21 01/09/21 01/09/21 22:46 23:00 23:16 Temperature Pulse Rate 89 82 89 Respiratory 15 13 19 Rate Blood Pressure 107/59 110/56 110/56 O2 Sat by Pulse 100 91 Oximetry 01/09/21 01/09/21 01/10/21 23:30 23:46 00:00 Temperature Pulse Rate 99 H 96 H 83 Respiratory 19 15 18 Rate Blood Pressure 103/67 103/67 101/59 O2 Sat by Pulse 100 100 100 Oximetry 01/10/21 01/10/21 01/10/21 00:16 00:30 00:46 Temperature Pulse Rate 82 89 87 Respiratory 12 12 12 Rate Blood Pressure 101/59 112/49 112/49 O2 Sat by Pulse 100 100 100 Oximetry 01/10/21 01/10/21 01/10/21 01:00 01:03 01:10 Temperature 98.0 F Pulse Rate 81 78 Respiratory 15 12 Rate Blood Pressure 106/61 106/61 O2 Sat by Pulse 100 100 Oximetry 01/10/21 01/10/21 01/10/21 01:20 01:30 01:40 Temperature Pulse Rate 79 72 70 Respiratory 14 13 16 Rate Blood Pressure 106/61 98/62 98/62 O2 Sat by Pulse 100 100 100 Oximetry 01/10/21 01:50 Temperature Pulse Rate 81 Respiratory 27 H Rate Blood Pressure 98/62 O2 Sat by Pulse 100 Oximetry - Reevaluation(s) Reevaluation #1: 01/09/21 21:58 Differential diagnosis, including but not limited to: Sepsis, pyelonephritis, renal abscess, noncompliance Assessment and plan: 25-year-old female, status post discharge last month with pyelonephritis and sepsis, supposed to be on 2 weeks of antibiotics, only took 4 days of antibiotics, presenting with recurrent symptoms, likely recurrence of pyelonephritis, and probable renal abscess. The patient is febrile, tachycardic, and meeting sepsis criteria. The patient states that she is not . Start IV fluids, antibiotics, pain control, antipyresis, obtain emergent CT scan abdomen pelvis. Currently, this emergency room does not have urology available for ER consultation. Therefore, if renal abscess is identified, patient will require transfer to a facility that can provide urologic coverage. I have discussed this with the patient, who verbalized understanding. N.p.o. for now. Hemodynamically stable at this time. Reevaluation #2: 01/09/21 22:57 Patient feels improved. Heart rate in the 90s. CT scan abdomen pelvis shows left-sided pyelonephritis, without abscess. Patient will be admitted to the medical service for sepsis secondary to pyelonephritis. The patient is amenable to this plan of care. Dr Mathew Ceballos to admit ED Medical Decision Making - Lab Data Result diagrams: 01/10/21 04:06 01/10/21 01:07 Vital Signs 01/09/21 17:10 Temperature 102.7 F H Pulse Rate 129 H Respiratory 24 Rate Blood Pressure 109/83 O2 Sat by Pulse 99 Oximetry Lab Results 01/09/21 01/09/21 01/09/21 Range/Units 18:17 18:17 18:17 WBC 10.2 (4.5-11.0) K/mm3 RBC 4.45 (3.65-5.03) M/mm3 Hgb 13.1 (10.1-14.3) gm/dl Hct 39.0 (30.3-42.9) % MCV 88 (79-97) fl MCH 29 (28-32) pg MCHC 34 (30-34) % RDW 16.7 H (13.2-15.2) % Plt Count 197 (140-440) K/mm3 Lymph % (Auto) 13.6 (13.4-35.0) % [place] % (Auto) 12.6 H (0.0-7.3) % Eos % (Auto) 0.0 (0.0-4.3) % Baso % (Auto) 0.1 (0.0-1.8) % Lymph # (Auto) 1.4 (1.2-5.4) K/mm3 [place] # (Auto) 1.3 H (0.0-0.8) K/mm3 Eos # (Auto) 0.0 (0.0-0.4) K/mm3 Baso # (Auto) 0.0 (0.0-0.1) K/mm3 Seg Neutrophils % 73.7 H (40.0-70.0) % Seg Neutrophils # 7.6 (1.8-7.7) K/mm3 Sodium 130 L (137-145) mmol/L Potassium 4.2 (3.6-5.0) mmol/L Chloride 94.7 L (98-107) mmol/L Carbon Dioxide 23 (22-30) mmol/L Anion Gap 17 mmol/L BUN 8 (7-17) mg/dL Creatinine 1.0 (0.6-1.2) mg/dL Estimated GFR > 60 ml/min BUN/Creatinine Ratio 8 % Glucose 96 (65-100) mg/dL Lactic Acid 1.20 (0.7-2.0) mmol/L Calcium 9.2 (8.4-10.2) mg/dL Total Bilirubin 0.40 (0.1-1.2) mg/dL AST 11 (5-40) units/L ALT 9 (7-56) units/L Alkaline Phosphatase 58 (35-129) units/L Total Protein 8.3 H (6.3-8.2) g/dL Albumin 3.9 (3.9-5) g/dL Albumin/Globulin Ratio 0.9 % - Radiology Data Radiology results: pending, report reviewed, image reviewed CT ABDOMEN AND PELVIS WITH CONTRAST INDICATION / CLINICAL INFORMATION: Lower abdominal pain, lower back pain, fever x2 days. TECHNIQUE: Axial CT images were obtained through the abdomen and pelvis after 100 cc Omnipaque [address] scans at this location are performed using CT dose reduction for [employer] by means of automated exposure control. COMPARISON: None available. FINDINGS: LOWER CHEST: No significant abnormality. LIVER: No significant abnormality. GALLBLADDER: No significant abnormality. BILE DUCTS: No significant abnormality. PANCREAS: No significant abnormality. SPLEEN: No significant abnormality. ADRENALS: No significant abnormality. RIGHT KIDNEY / URETER: A solid hypodense lesion is present along the mid/lower poles of the right kidney on images 77 through 86 of series 2 measuring up to approximately 2.5 cm in axial dimension on image 77 of series 2 with a craniocaudal dimension of 2.5 cm . There is generalized urothelial enhancement along the renal collecting system and ureter. No other significant abnormality. LEFT KIDNEY / URETER: No significant abnormality. STOMACH / SMALL BOWEL: No significant abnormality. COLON: No significant abnormality. APPENDIX: Not well-visualized. No suspicious inflammation in the right lower quadrant to suggest acute appendicitis. PERITONEUM: No free fluid. No free air. No fluid collection. LYMPH NODES: No significant adenopathy. AORTA / ARTERIES: No significant abnormality. IVC / VEINS: No significant abnormality. URINARY BLADDER: No significant abnormality. REPRODUCTIVE ORGANS: No significant abnormality. ADDITIONAL FINDINGS: None. SKELETAL SYSTEM: No significant abnormality. IMPRESSION: Suspected right pyelonephritis as described above with secondary right renal abscess. A follow- up CT abdomen with contrast in one month is recommended. Signer Name: Barry Bruner MD Signed: 11/18/2020 12:13 PM Workstation Name: [id number] CT ABDOMEN AND PELVIS WITH CONTRAST HISTORY: MAIN. Concern for renal abscess, side unspecified COMPARISON: CT abdomen/pelvis from yesterday TECHNIQUE: CT images of the abdomen and pelvis were obtained following administration of intravenous contrast. All CT scans at this location are performed using CT dose reduction for [employer] by means of automated exposure control. CONTRAST: 100 ml of intravenous contrast administered. FINDINGS: Lungs/bones: Lung bases are clear. No acute osseous abnormality. Abdomen/pelvis: The liver, gallbladder, spleen, pancreas, adrenals, left kidney, and proximal GI tract appear unremarkable. There is again abnormal urothelial enhancement along the right ureter with adjacent stranding and also a vague hypodensity in the right lower pole which was previously questioned to represent possible early abscess formation. There has been no significant interval change in any of these findings. Urinary bladder and reproductive organs are unremarkable with a small right ovarian cyst which is simple in appearance. No pelvic free fluid or acute colonic abnormality identified. Appendix is not well seen on this exam. IMPRESSION: 1. No change in appearance of right-sided pyelonephritis and possible evolving renal abscess since yesterday. Signer Name: Desean Gonzáles MD Signed: 11/19/2020 12:27 PM Workstation Name: [id number] [facility] [address] [place] [address] Cat Scan Report Signed Patient: STACIE JOSEPH MR#: [id number] 67 : 1995 Acct:[id number] Age/Sex: 25 / F ADM Date: 01/09/21 Loc: ED Attending Dr: Ordering Physician: MARGARET FERRER Date of Service: 01/09/21 Procedure(s): CT abdomen pelvis w con Accession Number(s): [id number] cc: MARGARET FERRER CT OF THE ABDOMEN AND PELVIS WITH INTRAVENOUS CONTRAST INDICATION / CLINICAL INFORMATION: Low back pain and fever. History of pyelonephritis/abscess. TECHNIQUE: The patient received 100 cc Omnipaque [address] scans at this location are performed using CT dose reduction for ALARA by means of aut omated exposure control. COMPARISON: 11/19/20. FINDINGS: ABDOMEN: Changes of acute pyelonephritis involving the right kidney have almost completely resolved with minimal residua in the lower pole. There are new changes of acute pyelonephritis involving the left kidney involving the mid to upper pole laterally. There is a patchy decreased nephrogram. I do not identify a discrete renal parenchymal abscess and there is no evidence of perinephric fluid collection. There is a 1 mm nonobstructive calculus in the right mid kidney. The liver, spleen, gallbladder, bile ducts, pancreas, adrenal glands and bowel are normal. There are multiple accessory spleens. No adenopathy is present. The lung bases are clear. PELVIS: The distal ureters and urinary bladder are normal. The uterus and adnexal regions are unremarkable. There is no evidence of appendicitis or diverticulitis. No abnormal mass or fluid collection is seen. I do not identify a hernia. No acute osseous abnormality is present. IMPRESSION: 1. Interval development of moderate acute pyelonephritis involving the mid to upper left kidney. No discrete abscess or perinephric fluid collection. 2. Changes of pyelonephritis involving the right kidney have almost completely resolved. Signer Name: Markell Owens MD Signed: 01/09/2021 10:43 PM Workstation Name: [id number] Transcribed By: RT Dictated By: Markell Owens MD Electronically Authenticated By: Markell Owens MD Signed Date/Time: 01/09/212242 DD/ 37 Critical Care Time: Yes Critical care time in (mins) excluding proc time.: 35 Critical care attestation.: If time is entered above; I have spent that time in minutes in the direct care of this critically ill patient, excluding procedure time. ED Disposition Clinical Impression: Pyelonephritis, Sepsis, Non-compliance Disposition: DC-09 OP ADMIT IP TO THIS HOSP Is pt being admited?: Yes Does the pt Need Aspirin: No Condition: Serious
[2021-01-09] MEDS ORDERED: HYDROmorphone 1 MG/1 ML INJ IV ONE (21:41)
[2021-01-09 22:14] LABS: Bilirubin,Urine NEG (Negative); Blood,Urine NEG (Negative); Color,Urine Yellow (Yellow); Mucus,Urine FEW /HPF; Protein,Urine <15 mg/dL mg/dL (Negative); Urobilinogen,Urine < 2.0 mg/dL (<2.0)
[2021-01-09 22:20] LABS: HCG Qualitative,Urine Negative (Negative)
--- NOTE | 2021-01-09 22:47 | Cat Scan Report ---
CT OF THE ABDOMEN AND PELVIS WITH INTRAVENOUS CONTRAST INDICATION / CLINICAL INFORMATION: Low back pain and fever. History of pyelonephritis/abscess. TECHNIQUE: The patient received 100 cc Omnipaque [address] scans at this location are performed using CT dose reduction for ALARA by means of automated exposure control. COMPARISON: 11/19/20. FINDINGS: ABDOMEN: Changes of acute pyelonephritis involving the right kidney have almost completely resolved w ith minimal residua in the lower pole. There are new changes of acute pyelonephritis involving the le ft kidney involving the mid to upper pole laterally. There is a patchy decreased nephrogram. I do not identify a discrete renal parenchymal abscess and there is no evidence of perinephric fluid collecti on. There is a 1 mm nonobstructive calculus in the right mid kidney. The liver, spleen, gallbladder, bile ducts, pancreas, adrenal glands and bowel are normal. There are multiple accessory spleens. No adenopathy is present. The lung bases are clear. PELVIS: The distal ureters and urinary bladder are normal. The uterus and adnexal regions are unremar kable. There is no evidence of appendicitis or diverticulitis. No abnormal mass or fluid collection i s seen. I do not identify a hernia. No acute osseous abnormality is present. IMPRESSION: 1. Interval development of moderate acute pyelonephritis involving the mid to upper left kidney. No d iscrete abscess or perinephric fluid collection. 2. Changes of pyelonephritis involving the right kidney have almost completely resolved. Signer Name: Markell Owens MD Signed: 01/09/2021 10:43 PM Workstation Name: [id number]
[2021-01-09] MEDS ORDERED: KETOROLAC 30 MG/1 ML INJ IV ONE (22:58)
--- NOTE | 2021-01-09 23:22 | History and Physical Report ---
History of Present Illness Date of examination: 01/09/21 Date of admission: 01/09/21 Chief complaint: right flank pain Fever 102.7 Right sided renal abscess History of present illness: The patient was evaluated in the emergency department for symptoms described in the history of present illness. He/she was evaluated in the context of the global COVID-19 pandemic, which necessitated consideration that the patient might be at risk for infection with the virus that causes COVID-19. Institutional protocols and algorithms that pertain to the evaluation of patients at risk for COVID-19 are in a state of rapid change based on information released by regulatory bodies including the CDC and federal and state organizations. These policies and algorithms were followed during the patient's care in the emergency department. Please note that these policies, procedures and recommendations changed on a rapid basis. ED [id number] WBC 10.2, hemoglobin 13.1, platelet 197, sodium 130, potassium 4.2, creatinine 1.0 Lactic acid 1.[address] of the abdomen showed air right-sided pyelonephritis Patient seen in ED at bedside. She reports right flank pain. Pain level is 10/10. Patient denies alcohol or alcohol use tobacco use and illicit drug use. I reviewed labs, medical record, and vital signs. Past History Past Medical History: No medical history Past Surgical History: No surgical history Social history: no significant social history Family history: no significant family history Medications and Allergies Allergies Allergy/AdvReac Type Severity Reaction Status Date / Time No Known Allergies Allergy Verified 01/09/21 17:13 Home Medications Medication Instructions Recorded Confirmed Last Taken Type Sulfamethoxazole/Trimethoprim 1 each PO BID #28 tablet 11/20/20 Unknown Rx [Bactrim DS TAB] oxyCODONE /ACETAMINOPHEN [Percocet 1 tab PO Q6H PRN #10 tablet 11/20/20 Unknown Rx 5/325 mg] Review of Systems Constitutional: fever Ears, nose, mouth and throat: no epistaxis, no hoarseness Breasts: no discharge Cardiovascular: no dyspnea on exertion Respiratory: no congestion, no wheezing Gastrointestinal: abdominal pain Genitourinary Female: flank pain Rectal: no itching Musculoskeletal: low back pain, no neck stiffness Integumentary: no rash, no pruritis Neurological: no head injury Hematologic/Lymphatic: no easy bruising, no easy bleeding Allergic/Immunologic: no urticaria Exam - Constitutional Vitals: Temp Pulse Resp BP Pulse Ox 102.7 F H 82 13 110/56 100 01/09/21 17:10 01/09/21 23:00 01/09/21 23:00 01/09/21 23:00 01/09/21 22:46 General appearance: Present: severe distress, well-nourished - EENT Eyes: Present: PERRL ENT: hearing intact, clear oral mucosa - Neck Neck: Present: supple, normal ROM - Respiratory Respiratory effort: normal Respiratory: bilateral: CTA - Cardiovascular Heart rate: 82 Heart Sounds: Present: S1 & S2. Absent: rub, click - Extremities Extremities: pulses symmetrical, No edema Peripheral Pulses: within normal limits - Abdominal General gastrointestinal: Present: soft, tender, non-distended, normal bowel sounds Localized gastrointestinal: tender: RLQ, guarding: RLQ Female genitourinary: Present: normal - Integumentary Integumentary: Present: clear, warm, dry - Musculoskeletal Musculoskeletal: gait normal, strength equal bilaterally - Psychiatric Psychiatric: appropriate mood/affect, intact judgment & insight, cooperative - Neurologic Neurologic: CNII-XII intact, moves all extremities - Allied Health Allied health notes reviewed: nursing Results - Labs CBC & Chem 7: 01/10/21 04:06 01/10/21 01:07 Labs: Abnormal lab results 01/09/21 01/09/21 01/09/21 Range/Units 18:17 18:17 Unknown RDW 16.7 H (13.2-15.2) % [place] % (Auto) 12.6 H (0.0-7.3) % [place] # (Auto) 1.3 H (0.0-0.8) K/mm3 Seg Neutrophils % 73.7 H (40.0-70.0) % Sodium 130 L (137-145) mmol/L Chloride 94.7 L (98-107) mmol/L Total Protein 8.3 H (6.3-8.2) g/dL Urine WBC (Auto) 8.0 H (0.0-6.0) /HPF U Epithel Cells (Auto) 14.0 H (0-13.0) /HPF Assessment and Plan - Patient Problems (1) Pyelonephritis Current Visit: Yes Status: Acute Plan to address problem: continue antibiotic therapy Continue iV hydration (2) Sepsis Current Visit: Yes Status: Acute Plan to address problem: blood and urine culture-f/u with result Antibiotic therapy ID consult (3) Renal abscess, right Current Visit: No Status: Acute Plan to address problem: hx of renal abscess with previous admit Noncompliance with antibiotic therapy CT abdomen showed right sided pyelonephritis on this admission Empiric antibiotic therapy (4) Hyponatremia Current Visit: Yes Status: Acute Plan to address problem: Normal saline hydration monitor sodium level (5) DVT prophylaxis Current Visit: No Status: Acute Plan to address problem: Lovenox
[2021-01-10] MEDS ORDERED: traZODone 50 MG TAB PO PRN (00:45)
[2021-01-10] MEDS ORDERED: ONDANSETRON 4 MG/2 ML INJ IV PRN (00:50)
[2021-01-10 01:42] LABS: Alanine Aminotransferase 7 units/L (7-56); Albumin 3.2 g/dL (3.9-5); BUN/Creatinine Ratio 10; Blood Urea Nitrogen 8 mg/dL (7-17); Calcium 7.7 mg/dL (8.4-10.2); Hemolysis Index 2
[2021-01-10] MEDS: SODIUM CHLORIDE 0.9% 1000 ML 1,000 ML IV SCH ×2 (04:00→14:20)
[2021-01-10 04:20] LABS: Hematocrit 33.2 % (30.3-42.9); Mean Corpuscular HGB Conc 33 % (30-34); Mean Corpuscular Volume 88 fl (79-97); Platelet Count 165 K/mm3 (140-440); Red Blood Count 3.79 M/mm3 (3.65-5.03); Red Cell Distribution Width 16.9 % (13.2-15.2)
[2021-01-10 04:28] LABS: Basophils % (Auto) 0.3 % (0.0-1.8); Eosinophils % (Auto) 0.1 % (0.0-4.3); Lymphocytes % (Auto) 23.2 % (13.4-35.0); Monocytes % (Auto) 18.3 % (0.0-7.3)
[2021-01-10 04:29] LABS: Lymphocytes # (Auto) 1.7 K/mm3 (1.2-5.4); Monocytes # (Auto) 1.3 K/mm3 (0.0-0.8)
[2021-01-10] MEDS ORDERED: ALUM-MAG HYDROXIDE-SIMETHICONE 200-200-20MG/5ML ORAL LIQD 30 ML PO PRN (06:57)
[2021-01-10] MEDS ORDERED: SENNOSIDES ORAL LIQD 8.8 MG/5 ML ORAL LIQD PO PRN (06:57)
[2021-01-10] MEDS: ENOXAPARIN 40 MG/0.4 ML INJ SUB-Q SCH (09:56)
[2021-01-10] MEDS: traMADol 50 MG TAB PO PRN ×2 (09:57→22:28)
[2021-01-10] MEDS: FAMOTIDINE 20 MG TAB PO SCH ×2 (09:57→22:24)
[2021-01-10] MEDS ORDERED: cefTRIAXone/NS 2 GM/100 ML 2 GM/100 ML BAG IV SCH (10:00)
[2021-01-10] MEDS ORDERED: SODIUM CHLORIDE 0.9% 1000 ML 1,000 ML IV ONE (10:00)
--- NOTE | 2021-01-10 13:21 | Progress Note ---
Assessment and Plan Assessment and plan: ight flank pain Fever 102.7 Right sided renal abscess History of present illness: The patient was evaluated in the emergency department for symptoms described in the history of present illness. He/she was evaluated in the context of the global COVID-19 pandemic, which necessitated consideration that the patient might be at risk for infection with the virus that causes COVID-19. Institutional protocols and algorithms that pertain to the evaluation of patients at risk for COVID-19 are in a state of rapid change based on information released by regulatory bodies including the CDC and federal and state organizations. These policies and algorithms were followed during the patient's care in the emergency department. Please note that these policies, procedures and recommendations changed on a rapid basis. ED [id number] WBC 10.2, hemoglobin 13.1, platelet 197, sodium 130, potassium 4.2, creatinine 1.0 Lactic acid 1.[address] of the abdomen showed air left-sided pyelonephritis Patient seen in ED at bedside. She reports right flank pain. Pain level is 10/10. Patient denies alcohol or alcohol use tobacco use and illicit drug use. I reviewed labs, medical record, and vital signs. 01/10: Continue supportive care. ID consulted. Will follow cultures. Pain control. As advised by case management that patient is noncompliant discussed compliance with the patient in detail. We will give a bolus of fluid due to noted hypotension. Monitor electrolytes and labs in a.m. (1) left pyelonephritis Current Visit: Yes Status: Acute Plan to address problem: continue antibiotic therapy Continue iV hydration ID consulted Follow cultures if any develop (2) Sepsis Current Visit: Yes Status: Acute Plan to address problem: blood and urine culture-f/u with result Antibiotic therapy ID consult (3) Renal abscess, right Current Visit: No Status: Acute Plan to address problem: hx of renal abscess with previous admit Noncompliance with antibiotic therapy CT abdomen showed right sided pyelonephritis on this admission Empiric antibiotic therapy (4) Hyponatremia Current Visit: Yes Status: Acute Plan to address problem: Normal saline hydration monitor sodium level (5) DVT prophylaxis Current Visit: No Status: Acute Plan to address problem: Lovenox History Interval history: Patient seen and examined, still reports back pain. No New fever. Hospitalist Physical - Physical exam Narrative exam: General appearance: Present: Mild to moderate distress appears uncomfortable reports pain 5/10 in intensity, well-nourished - EENT Eyes: Present: PERRL ENT: hearing intact, clear oral mucosa - Neck Neck: Present: supple, normal ROM - Respiratory Respiratory effort: normal Respiratory: bilateral: CTA - Cardiovascular Heart rate: 82 Heart Sounds: Present: S1 & S2. Absent: rub, click - Extremities Extremities: pulses symmetrical, No edema Peripheral Pulses: within normal limits - Abdominal General gastrointestinal: Present: soft, tender, non-distended, normal bowel sounds Localized gastrointestinal: tender: RLQ, guarding: RLQ Female genitourinary: Present: normal - Integumentary Integumentary: Present: clear, warm, dry - Musculoskeletal Musculoskeletal: gait normal, strength equal bilaterally - Psychiatric Psychiatric: appropriate mood/affect, intact judgment & insight, cooperative - Neurologic Neurologic: CNII-XII intact, moves all extremities - Allied Health Allied health notes reviewed: nursing - Constitutional Vitals: Temp Pulse Resp BP Pulse Ox 98.5 F 91 H 15 96/59 99 01/10/21 06:59 01/10/21 06:59 01/10/21 06:59 01/10/21 06:59 01/10/21 06:59 General appearance: Present: severe distress, well-nourished Results - Labs CBC & Chem 7: 01/10/21 04:06 01/10/21 01:07 Labs: Laboratory Last Values WBC 7.3 K/mm3 (4.5-11.0) 01/10/21 04:06 RBC 3.79 M/mm3 (3.65-5.03) 01/10/21 04:06 Hgb 11.0 gm/dl (10.1-14.3) 01/10/21 04:06 Hct 33.2 % (30.3-42.9) 01/10/21 04:06 MCV 88 fl (79-97) 01/10/21 04:06 MCH 29 pg (28-32) 01/10/21 04:06 MCHC 33 % (30-34) 01/10/21 04:06 RDW 16.9 % (13.2-15.2) H 01/10/21 04:06 Plt Count 165 K/mm3 (140-440) 01/10/21 04:06 Lymph % (Auto) 23.2 % (13.4-35.0) 01/10/21 04:06 [place] % (Auto) 18.3 % (0.0-7.3) H 01/10/21 04:06 Eos % (Auto) 0.1 % (0.0-4.3) 01/10/21 04:06 Baso % (Auto) 0.3 % (0.0-1.8) 01/10/21 04:06 Lymph # (Auto) 1.7 K/mm3 (1.2-5.4) 01/10/21 04:06 [place] # (Auto) 1.3 K/mm3 (0.0-0.8) H 01/10/21 04:06 Eos # (Auto) 0.0 K/mm3 (0.0-0.4) 01/10/21 04:06 Baso # (Auto) 0.0 K/mm3 (0.0-0.1) 01/10/21 04:06 Seg Neutrophils % 58.1 % (40.0-70.0) 01/10/21 04:06 Seg Neutrophils # 4.2 K/mm3 (1.8-7.7) 01/10/21 04:06 Sodium 132 mmol/L (137-145) L 01/10/21 01:07 Potassium 4.0 mmol/L (3.6-5.0) 01/10/21 01:07 Chloride 100.7 mmol/L (98-107) 01/10/21 01:07 Carbon Dioxide 22 mmol/L (22-30) 01/10/21 01:07 Anion Gap 13 mmol/L 01/10/21 01:07 BUN 8 mg/dL (7-17) 01/10/21 01:07 Creatinine 0.8 mg/dL (0.6-1.2) 01/10/21 01:07 Estimated GFR > 60 ml/min 01/10/21 01:07 BUN/Creatinine Ratio 10 % 01/10/21 01:07 Glucose 89 mg/dL (65-100) 01/10/21 01:07 Lactic Acid 0.90 mmol/L (0.7-2.0) 01/09/21 21:34 Calcium 7.7 mg/dL (8.4-10.2) L D 01/10/21 01:07 Magnesium 1.90 mg/dL (1.7-2.3) 01/09/21 21:15 Total Bilirubin 0.20 mg/dL (0.1-1.2) 01/10/21 01:07 AST 8 units/L (5-40) 01/10/21 01:07 ALT 7 units/L (7-56) 01/10/21 01:07 Alkaline Phosphatase 47 units/L (35-129) 01/10/21 01:07 Total Creatine Kinase 45 units/L (30-135) 01/09/21 21:15 Total Protein 6.7 g/dL (6.3-8.2) 01/10/21 01:07 Albumin 3.2 g/dL (3.9-5) L 01/10/21 01:07 Albumin/Globulin Ratio 0.9 % 01/10/21 01:07 HCG, Quant < 2 mIU/mL (0-4) 01/09/21 21:15 Urine Color Yellow (Yellow) 01/09/21 Unknown Urine Turbidity Slightly-cloudy (Clear) 01/09/21 Unknown Urine pH 6.0 (5.0-7.0) 01/09/21 Unknown Ur Specific [place] 1.012 (1.003-1.030) 01/09/21 Unknown Urine Protein <15 mg/dl mg/dL (Negative) 01/09/21 Unknown Urine Glucose (UA) Neg mg/dL (Negative) 01/09/21 Unknown Urine Ketones 20 mg/dL (Negative) 01/09/21 Unknown Urine Blood Neg (Negative) 01/09/21 Unknown Urine Nitrite Neg (Negative) 01/09/21 Unknown Urine Bilirubin Neg (Negative) 01/09/21 Unknown Urine Urobilinogen < 2.0 mg/dL (<2.0) 01/09/21 Unknown Ur Leukocyte Esterase Tr (Negative) 01/09/21 Unknown Urine WBC (Auto) 8.0 /HPF (0.0-6.0) H 01/09/21 Unknown Urine RBC (Auto) 4.0 /HPF (0.0-6.0) 01/09/21 Unknown U Epithel Cells (Auto) 14.0 /HPF (0-13.0) H 01/09/21 Unknown Urine Mucus Few /HPF 01/09/21 Unknown Urine HCG, Qual Negative (Negative) 01/09/21 Unknown Blood Type O POSITIVE 01/10/21 01:07 Antibody Screen Negative 01/10/21 01:07 Microbiology: Microbiology 01/09/21 18:17 Peripheral/Venous Blood Culture - Preliminary Culture in Progress 01/09/21 18:23 Peripheral/Venous Blood Culture - Preliminary Culture in Progress Active Medications - Current Medications Current Medications: Generic Name Dose Route Start Last Admin Trade Name Freq PRN Reason Stop Dose Admin Al Hydrox/Mg Hydrox/Simethicone 15 ml 01/10/21 06:57 Alum-Mag Hydroxide-Simethicone 771-042-99vs/5ml Oral Liqd 30 Ml PO Q4H PRN Indigestion Enoxaparin Sodium 40 mg 01/10/21 10:00 01/10/21 09:56 Enoxaparin 40 Mg/0.4 Ml Inj SUB-Q 40 mg DAILY DIAZ Administration Protocol Famotidine 20 mg 01/10/21 10:00 01/10/21 09:57 Famotidine 20 Mg Tab PO 20 mg BID DIAZ Administration Ceftriaxone Sodium 2 gm in 100 mls @ 200 mls/hr 01/10/21 10:00 01/10/21 09:56 Rocephin/Ns 2 Gm/100 Ml IV 200 mls/hr Q24H DIAZ Administration Protocol Sodium Chloride 1,000 mls @ 100 mls/hr 01/10/21 00:45 01/10/21 04:00 Nacl 0.9% 1000 Ml IV 100 mls/hr DIRECT DIAZ Administration Ondansetron HCl 4 mg 01/10/21 00:50 Ondansetron 4 Mg/2 Ml Inj IV Q4H PRN Nausea And Vomiting Senna 17.6 mg 01/10/21 06:57 Sennosides Oral Liqd 8.8 Mg/5 Ml Oral Liqd PO Q12HR PRN Laxative Effect Tramadol HCl 50 mg 01/10/21 00:51 01/10/21 09:57 Tramadol 50 Mg Tab PO 50 mg Q4H PRN Administration Pain, Moderate (4-6) Trazodone HCl 50 mg 01/10/21 00:45 Trazodone 50 Mg Tab PO QHS PRN Insomnia
--- NOTE | 2021-01-10 14:44 | Consultation ---
History of Present Illness - Reason for Consult Consult date: 01/10/21 Pyelonephritis Requesting physician: TYESHA FUNES - History of Present Illness The patient is a 25-year-old female with previous history of UTI and pyelonephritis in November 2020 was complicated by right renal abscess, was evaluated by urology and treated with antibiotics. She has now been admitted with left-sided flank pain, fever going on for [address] showed resolution of her right renal abscess but new evidence of left-sided pyelonephritis. Review of Systems: Per HPI Past History Past Medical History: No medical history Past Surgical History: No surgical history Social history: no significant social history Family history: no significant family history Medications and Allergies Allergies Allergy/AdvReac Type Severity Reaction Status Date / Time No Known Allergies Allergy Verified 01/09/21 17:13 Home Medications Medication Instructions Recorded Confirmed Last Taken Type Sulfamethoxazole/Trimethoprim 1 each PO BID #28 tablet 11/20/20 Unknown Rx [Bactrim DS TAB] oxyCODONE /ACETAMINOPHEN [Percocet 1 tab PO Q6H PRN #10 tablet 11/20/20 Unknown Rx 5/325 mg] Active Meds: Active Medications Al Hydrox/Mg Hydrox/Simethicone (Alum-Mag Hydroxide-Simethicone 365-021-66na/5ml Oral Liqd 30 Ml) 15 ml PO Q4H PRN PRN Reason: Indigestion Enoxaparin Sodium (Enoxaparin 40 Mg/0.4 Ml Inj) 40 mg SUB-Q DAILY DIAZ; Protocol Last Admin: 01/10/21 09:56 Dose: 40 mg Documented by: Famotidine (Famotidine 20 Mg Tab) 20 mg PO BID DIAZ Last Admin: 01/10/21 09:57 Dose: 20 mg Documented by: Ceftriaxone Sodium (Rocephin/Ns 2 Gm/100 Ml) 2 gm in 100 mls @ 200 mls/hr IV Q24H DIAZ; Protocol Last Admin: 01/10/21 09:56 Dose: 200 mls/hr Documented by: Sodium Chloride (Nacl 0.9% 1000 Ml) 1,000 mls @ 100 mls/hr IV DIRECT DIAZ Last Admin: 01/10/21 14:20 Dose: 100 mls/hr Documented by: Ondansetron HCl (Ondansetron 4 Mg/2 Ml Inj) 4 mg IV Q4H PRN PRN Reason: Nausea And Vomiting Senna (Sennosides Oral Liqd 8.8 Mg/5 Ml Oral Liqd) 17.6 mg PO Q12HR PRN PRN Reason: Laxative Effect Tramadol HCl (Tramadol 50 Mg Tab) 50 mg PO Q4H PRN PRN Reason: Pain, Moderate (4-6) Last Admin: 01/10/21 09:57 Dose: 50 mg Documented by: Trazodone HCl (Trazodone 50 Mg Tab) 50 mg PO QHS PRN PRN Reason: Insomnia Physical Examination - Physical Exam Narrative exam: Physical Exam: Constitutional: Alert, cooperative. No acute distress Head, Ears, Nose: Normocephalic, atraumatic. External ears, nose normal Eyes: Conjunctivae/corneas clear. No icterus. No ptosis. Cardiovascular: S1, S2 normal. Respiratory: Good air entry, clear to auscultation bilaterally GI: Soft, non-tender; bowel sounds normal. No peritoneal signs. Left flank tenderness present Musculoskeletal: No pedal edema, no cyanosis. Skin: No rash or abscess Hem/Lymphatic: No palpable cervical or supraclavicular nodes. No lymphangitis Psych: Mood ok. Affect normal Neurological: Awake, alert, oriented. No gross abnormality - Constitutional Vitals: Vital Signs Temp Pulse Resp BP Pulse Ox 97.9 F 100 H 20 143/86 96 01/10/21 12:19 01/10/21 12:19 01/10/21 12:19 01/10/21 12:19 01/10/21 12:19 Temperature -Last 24 Hours Temperature 97.9 F Temperature 99.0 F Temperature 98.5 F Temperature 98.0 F Temperature 102.7 F Results - Labs CBC & Chem 7: 01/10/21 04:06 01/10/21 01:07 Labs: Abnormal lab results 01/09/21 01/09/21 01/09/21 Range/Units 18:17 18:17 Unknown RDW 16.7 H (13.2-15.2) % [place] % (Auto) 12.6 H (0.0-7.3) % [place] # (Auto) 1.3 H (0.0-0.8) K/mm3 Seg Neutrophils % 73.7 H (40.0-70.0) % Sodium 130 L (137-145) mmol/L Chloride 94.7 L (98-107) mmol/L Calcium (8.4-10.2) mg/dL Total Protein 8.3 H (6.3-8.2) g/dL Albumin (3.9-5) g/dL Urine WBC (Auto) 8.0 H (0.0-6.0) /HPF U Epithel Cells (Auto) 14.0 H (0-13.0) /HPF 01/10/21 01/10/21 Range/Units 01:07 04:06 RDW 16.9 H (13.2-15.2) % [place] % (Auto) 18.3 H (0.0-7.3) % [place] # (Auto) 1.3 H (0.0-0.8) K/mm3 Seg Neutrophils % (40.0-70.0) % Sodium 132 L (137-145) mmol/L Chloride (98-107) mmol/L Calcium 7.7 L D (8.4-10.2) mg/dL Total Protein (6.3-8.2) g/dL Albumin 3.2 L (3.9-5) g/dL Urine WBC (Auto) (0.0-6.0) /HPF U Epithel Cells (Auto) (0-13.0) /HPF - Imaging and Cardiology CT scan - abdomen: report reviewed, image reviewed (L pyelonephritis) Assessment and Plan Cultures: 01/09/2021 blood culture: In process Urine culture: In process A/P: 25-year-old female with previous history of UTI and pyelonephritis in November 2020 was complicated by right renal abscess: #Left-sided pyelonephritis, ?lobar nephronia on CT #Recent history of right-sided pyelonephritis and renal abscess: Appears improved on CT scan. Recs: -Given recent antibiotic use, will switch her to IV cefepime till blood and urine culture results are available Kamlesh Ames MD, FACP [facility] O: [phone] F: [phone]
[2021-01-10] MEDS: CEFEPIME/NS 1 GM/100 ML 1 GM/100 ML BAG IV SCH ×2 (22:23→22:24)
[2021-01-11] MEDS: traMADol 50 MG TAB PO PRN ×2 (04:39→21:00)
[2021-01-11] MEDS: CEFEPIME/NS 1 GM/100 ML 1 GM/100 ML BAG IV SCH ×3 (05:23→22:03)
[2021-01-11] MEDS: FAMOTIDINE 20 MG TAB PO SCH ×2 (09:02→22:03)
[2021-01-11] MEDS: ENOXAPARIN 40 MG/0.4 ML INJ SUB-Q SCH (09:02)
[2021-01-11] MEDS: SODIUM CHLORIDE 0.9% 1000 ML 1,000 ML IV SCH ×2 (09:04→20:17)
[2021-01-11] MEDS ORDERED: MORPHINE 2 MG/1 ML INJ IV PRN (13:48)
--- NOTE | 2021-01-11 13:50 | Progress Note ---
Assessment and Plan Assessment and plan: ight flank pain Fever 102.7 Right sided renal abscess History of present illness: The patient was evaluated in the emergency department for symptoms described in the history of present illness. He/she was evaluated in the context of the global COVID-19 pandemic, which necessitated consideration that the patient might be at risk for infection with the virus that causes COVID-19. Institutional protocols and algorithms that pertain to the evaluation of patients at risk for COVID-19 are in a state of rapid change based on information released by regulatory bodies including the CDC and federal and state organizations. These policies and algorithms were followed during the patient's care in the emergency department. Please note that these policies, procedures and recommendations changed on a rapid basis. ED [id number] WBC 10.2, hemoglobin 13.1, platelet 197, sodium 130, potassium 4.2, creatinine 1.0 Lactic acid 1[address] of the abdomen showed air left-sided pyelonephritis Patient seen in ED at bedside. She reports right flank pain. Pain level is 10/10. Patient denies alcohol or alcohol use tobacco use and illicit drug use. I reviewed labs, medical record, and vital signs. 01/10: Continue supportive care. ID consulted. Will follow cultures. Pain control. As advised by case management that patient is noncompliant discussed compliance with the patient in detail. We will give a bolus of fluid due to noted hypotension. Monitor electrolytes and labs in a.m. 01/11: Continue supportive care adjust pain medication for better control. ID input noted awaiting urine culture (1) left pyelonephritis Current Visit: Yes Status: Acute Plan to address problem: continue antibiotic therapy Continue iV hydration ID consulted Follow cultures if any develop (2) Sepsis Current Visit: Yes Status: Acute Plan to address problem: blood and urine culture-f/u with result Antibiotic therapy ID consult (3) Renal abscess, right Current Visit: No Status: Acute Plan to address problem: hx of renal abscess with previous admit Noncompliance with antibiotic therapy CT abdomen showed right sided pyelonephritis on this admission Empiric antibiotic therapy (4) Hyponatremia Current Visit: Yes Status: Acute Plan to address problem: Normal saline hydration monitor sodium level (5) DVT prophylaxis Current Visit: No Status: Acute Plan to address problem: Lovenox History Interval history: Patient seen and examined, still reports back pain. Reports some improvement. No tremor No New fever. Hospitalist Physical - Physical exam Narrative exam: General appearance: Present: Mild to moderate distress appears uncomfortable reports pain 5/10 in intensity, well-nourished - EENT Eyes: Present: PERRL ENT: hearing intact, clear oral mucosa - Neck Neck: Present: supple, normal ROM - Respiratory Respiratory effort: normal Respiratory: bilateral: CTA - Cardiovascular Heart rate: 82 Heart Sounds: Present: S1 & S2. Absent: rub, click - Extremities Extremities: pulses symmetrical, No edema Peripheral Pulses: within normal limits - Abdominal General gastrointestinal: Present: soft, tender, non-distended, normal bowel sounds Localized gastrointestinal: tender: RLQ, guarding: RLQ Female genitourinary: Present: normal - Integumentary Integumentary: Present: clear, warm, dry - Musculoskeletal Musculoskeletal: gait normal, strength equal bilaterally - Psychiatric Psychiatric: appropriate mood/affect, intact judgment & insight, cooperative - Neurologic Neurologic: CNII-XII intact, moves all extremities - Allied Health Allied health notes reviewed: nursing - Constitutional Vitals: Temp Pulse Resp BP Pulse Ox 97.4 F L 79 15 108/78 97 01/11/21 13:03 01/11/21 13:03 01/11/21 13:03 01/11/21 13:03 01/11/21 13:03 General appearance: Present: severe distress, well-nourished Results - Labs CBC & Chem 7: 01/10/21 04:06 01/10/21 01:07 Labs: Laboratory Last Values WBC 7.3 K/mm3 (4.5-11.0) 01/10/21 04:06 RBC 3.79 M/mm3 (3.65-5.03) 01/10/21 04:06 Hgb 11.0 gm/dl (10.1-14.3) 01/10/21 04:06 Hct 33.2 % (30.3-42.9) 01/10/21 04:06 MCV 88 fl (79-97) 01/10/21 04:06 MCH 29 pg (28-32) 01/10/21 04:06 MCHC 33 % (30-34) 01/10/21 04:06 RDW 16.9 % (13.2-15.2) H 01/10/21 04:06 Plt Count 165 K/mm3 (140-440) 01/10/21 04:06 Lymph % (Auto) 23.2 % (13.4-35.0) 01/10/21 04:06 [place] % (Auto) 18.3 % (0.0-7.3) H 01/10/21 04:06 Eos % (Auto) 0.1 % (0.0-4.3) 01/10/21 04:06 Baso % (Auto) 0.3 % (0.0-1.8) 01/10/21 04:06 Lymph # (Auto) 1.7 K/mm3 (1.2-5.4) 01/10/21 04:06 [place] # (Auto) 1.3 K/mm3 (0.0-0.8) H 01/10/21 04:06 Eos # (Auto) 0.0 K/mm3 (0.0-0.4) 01/10/21 04:06 Baso # (Auto) 0.0 K/mm3 (0.0-0.1) 01/10/21 04:06 Seg Neutrophils % 58.1 % (40.0-70.0) 01/10/21 04:06 Seg Neutrophils # 4.2 K/mm3 (1.8-7.7) 01/10/21 04:06 Sodium 132 mmol/L (137-145) L 01/10/21 01:07 Potassium 4.0 mmol/L (3.6-5.0) 01/10/21 01:07 Chloride 100.7 mmol/L (98-107) 01/10/21 01:07 Carbon Dioxide 22 mmol/L (22-30) 01/10/21 01:07 Anion Gap 13 mmol/L 01/10/21 01:07 BUN 8 mg/dL (7-17) 01/10/21 01:07 Creatinine 0.8 mg/dL (0.6-1.2) 01/10/21 01:07 Estimated GFR > 60 ml/min 01/10/21 01:07 BUN/Creatinine Ratio 10 % 01/10/21 01:07 Glucose 89 mg/dL (65-100) 01/10/21 01:07 Lactic Acid 0.90 mmol/L (0.7-2.0) 01/09/21 21:34 Calcium 7.7 mg/dL (8.4-10.2) L D 01/10/21 01:07 Magnesium 1.90 mg/dL (1.7-2.3) 01/09/21 21:15 Total Bilirubin 0.20 mg/dL (0.1-1.2) 01/10/21 01:07 AST 8 units/L (5-40) 01/10/21 01:07 ALT 7 units/L (7-56) 01/10/21 01:07 Alkaline Phosphatase 47 units/L (35-129) 01/10/21 01:07 Total Creatine Kinase 45 units/L (30-135) 01/09/21 21:15 Total Protein 6.7 g/dL (6.3-8.2) 01/10/21 01:07 Albumin 3.2 g/dL (3.9-5) L 01/10/21 01:07 Albumin/Globulin Ratio 0.9 % 01/10/21 01:07 HCG, Quant < 2 mIU/mL (0-4) 01/09/21 21:15 Urine Color Yellow (Yellow) 01/09/21 Unknown Urine Turbidity Slightly-cloudy (Clear) 01/09/21 Unknown Urine pH 6.0 (5.0-7.0) 01/09/21 Unknown Ur Specific [place] 1.012 (1.003-1.030) 01/09/21 Unknown Urine Protein <15 mg/dl mg/dL (Negative) 01/09/21 Unknown Urine Glucose (UA) Neg mg/dL (Negative) 01/09/21 Unknown Urine Ketones 20 mg/dL (Negative) 01/09/21 Unknown Urine Blood Neg (Negative) 01/09/21 Unknown Urine Nitrite Neg (Negative) 01/09/21 Unknown Urine Bilirubin Neg (Negative) 01/09/21 Unknown Urine Urobilinogen < 2.0 mg/dL (<2.0) 01/09/21 Unknown Ur Leukocyte Esterase Tr (Negative) 01/09/21 Unknown Urine WBC (Auto) 8.0 /HPF (0.0-6.0) H 01/09/21 Unknown Urine RBC (Auto) 4.0 /HPF (0.0-6.0) 01/09/21 Unknown U Epithel Cells (Auto) 14.0 /HPF (0-13.0) H 01/09/21 Unknown Urine Mucus Few /HPF 01/09/21 Unknown Urine HCG, Qual Negative (Negative) 01/09/21 Unknown Blood Type O POSITIVE 01/10/21 01:07 Antibody Screen Negative 01/10/21 01:07 Microbiology: Microbiology 01/09/21 18:17 Peripheral/Venous Blood Culture - Preliminary NO GROWTH AFTER 24 HOURS 01/09/21 18:23 Peripheral/Venous Blood Culture - Preliminary NO GROWTH AFTER 24 HOURS Wick/IV: Voiding Method Toilet Active Medications - Current Medications Current Medications: Generic Name Dose Route Start Last Admin Trade Name Freq PRN Reason Stop Dose Admin Al Hydrox/Mg Hydrox/Simethicone 15 ml 01/10/21 06:57 Alum-Mag Hydroxide-Simethicone 020-499-56kt/5ml Oral Liqd 30 Ml PO Q4H PRN Indigestion Enoxaparin Sodium 40 mg 01/10/21 10:00 01/11/21 09:02 Enoxaparin 40 Mg/0.4 Ml Inj SUB-Q 40 mg DAILY DIAZ Administration Protocol Famotidine 20 mg 01/10/21 10:00 01/11/21 09:02 Famotidine 20 Mg Tab PO 20 mg BID DIAZ Administration Sodium Chloride 1,000 mls @ 100 mls/hr 01/10/21 00:45 01/11/21 09:04 Nacl 0.9% 1000 Ml IV 100 mls/hr DIRECT DIAZ Administration Cefepime HCl 1 gm in 100 mls @ 200 mls/hr 01/10/21 15:00 01/11/21 13:05 Cefepime/Ns 1 Gm/100 Ml IV 200 mls/hr Q8HR DIAZ Administration Protocol Morphine Sulfate 2 mg 01/11/21 13:48 Morphine 2 Mg/1 Ml Inj IV Q4H PRN Pain, Moderate (4-6) Ondansetron HCl 4 mg 01/10/21 00:50 Ondansetron 4 Mg/2 Ml Inj IV Q4H PRN Nausea And Vomiting Senna 17.6 mg 01/10/21 06:57 Sennosides Oral Liqd 8.8 Mg/5 Ml Oral Liqd PO Q12HR PRN Laxative Effect Tramadol HCl 50 mg 01/10/21 00:51 01/11/21 04:39 Tramadol 50 Mg Tab PO 50 mg Q4H PRN Administration Pain, Moderate (4-6) Trazodone HCl 50 mg 01/10/21 00:45 Trazodone 50 Mg Tab PO QHS PRN Insomnia
--- NOTE | 2021-01-11 14:44 | Progress Note ---
Assessment and Plan Cultures: 01/09/2021 blood culture: no growth Urine culture: In process A/P: 25-year-old female with previous history of UTI and pyelonephritis in November 2020 was complicated by right renal abscess: #Left-sided pyelonephritis, ?lobar nephronia on CT #Recent history of right-sided pyelonephritis and renal abscess: Appears improved on CT scan. Recs: -continue IV Cefepime till urine culture results are available -anticipate discharge on PO abx, probably treat for 14 days given severity of disease and recent h/o renal abscess Kamlesh Ames MD, FACP [facility] O: [phone] F: [phone] Subjective Date of service: 01/11/21 Interval history: No fever. Pain + but tolerable. Objective - Exam Narrative Exam: Physical Exam: Constitutional: Alert, cooperative. No acute distress Head, Ears, Nose: Normocephalic, atraumatic. External ears, nose normal Eyes: Conjunctivae/corneas clear. No icterus. No ptosis. Cardiovascular: S1, S2 normal. Respiratory: Good air entry, clear to auscultation bilaterally GI: Soft, non-tender; bowel sounds normal. No peritoneal signs. Left flank tenderness + Musculoskeletal: No pedal edema, no cyanosis. Skin: No rash or abscess Hem/Lymphatic: No palpable cervical or supraclavicular nodes. No lymphangitis Psych: Mood ok. Affect normal Neurological: Awake, alert, oriented. No gross abnormality - Constitutional Vitals: Vital Signs Temp Pulse Resp BP Pulse Ox 97.4 F L 79 15 108/78 97 01/11/21 13:03 01/11/21 13:03 01/11/21 13:03 01/11/21 13:03 01/11/21 13:03 Temperature -Last 24 Hours Temperature 97.4 F Temperature 97.4 F Temperature 98.3 F Temperature 97.3 F - Labs CBC & Chem 7: 01/10/21 04:06 01/10/21 01:07
[2021-01-12] MEDS: CEFEPIME/NS 1 GM/100 ML 1 GM/100 ML BAG IV SCH ×2 (05:31→15:01)
[2021-01-12] MEDS: SODIUM CHLORIDE 0.9% 1000 ML 1,000 ML IV SCH (06:12)
[2021-01-12] MEDS: ENOXAPARIN 40 MG/0.4 ML INJ SUB-Q SCH (09:14)
[2021-01-12] MEDS: traMADol 50 MG TAB PO PRN (09:14)
[2021-01-12] MEDS: FAMOTIDINE 20 MG TAB PO SCH (09:15)
--- NOTE | 2021-01-12 10:46 | Progress Note ---
Assessment and Plan Assessment and plan: ight flank pain Fever 102.7 Right sided renal abscess History of present illness: The patient was evaluated in the emergency department for symptoms described in the history of present illness. He/she was evaluated in the context of the global COVID-19 pandemic, which necessitated consideration that the patient might be at risk for infection with the virus that causes COVID-19. Institutional protocols and algorithms that pertain to the evaluation of patients at risk for COVID-19 are in a state of rapid change based on information released by regulatory bodies including the CDC and federal and state organizations. These policies and algorithms were followed during the patient's care in the emergency department. Please note that these policies, procedures and recommendations changed on a rapid basis. ED [id number] WBC 10.2, hemoglobin 13.1, platelet 197, sodium 130, potassium 4.2, creatinine 1.0 Lactic acid 1.[address] of the abdomen showed air left-sided pyelonephritis Patient seen in ED at bedside. She reports right flank pain. Pain level is 10/10. Patient denies alcohol or alcohol use tobacco use and illicit drug use. I reviewed labs, medical record, and vital signs. 01/10: Continue supportive care. ID consulted. Will follow cultures. Pain control. As advised by case management that patient is noncompliant discussed compliance with the patient in detail. We will give a bolus of fluid due to noted hypotension. Monitor electrolytes and labs in a.m. 01/11: Continue supportive care adjust pain medication for better control. ID input noted awaiting urine culture 01/12: Considering extensive antibiotic therapy in the past and also severity of pyelonephritis. Will await urine culture to determine right antibiotics prior to discharge anticipate discharge in 24 hours (1) left pyelonephritis Current Visit: Yes Status: Acute Plan to address problem: continue antibiotic therapy Continue iV hydration ID consulted Follow cultures if any develop (2) Sepsis Current Visit: Yes Status: Acute Plan to address problem: blood and urine culture-f/u with result Antibiotic therapy ID consult (3) Renal abscess, right Current Visit: No Status: Acute Plan to address problem: hx of renal abscess with previous admit Noncompliance with antibiotic therapy CT abdomen showed right sided pyelonephritis on this admission Empiric antibiotic therapy (4) Hyponatremia Current Visit: Yes Status: Acute Plan to address problem: Normal saline hydration monitor sodium level (5) DVT prophylaxis Current Visit: No Status: Acute Plan to address problem: Lovenox History Interval history: Patient seen and examined, still reports back pain. Reports some improvement. No tremor No New fever. Hospitalist Physical - Physical exam Narrative exam: General appearance: Present: Mild to moderate distress appears uncomfortable reports pain 3/10 in intensity, well-nourished - EENT Eyes: Present: PERRL ENT: hearing intact, clear oral mucosa - Neck Neck: Present: supple, normal ROM - Respiratory Respiratory effort: normal Respiratory: bilateral: CTA - Cardiovascular Heart rate: 82 Heart Sounds: Present: S1 & S2. Absent: rub, click - Extremities Extremities: pulses symmetrical, No edema Peripheral Pulses: within normal limits - Abdominal General gastrointestinal: Present: soft, tender, non-distended, normal bowel sounds Localized gastrointestinal: tender: RLQ, guarding: RLQ Female genitourinary: Present: normal - Integumentary Integumentary: Present: clear, warm, dry - Musculoskeletal Musculoskeletal: gait normal, strength equal bilaterally - Psychiatric Psychiatric: appropriate mood/affect, intact judgment & insight, cooperative - Neurologic Neurologic: CNII-XII intact, moves all extremities - Allied Health Allied health notes reviewed: nursing - Constitutional Vitals: Temp Pulse Resp BP Pulse Ox 98.3 F 61 20 110/54 98 01/12/21 04:56 01/12/21 04:56 01/12/21 04:56 01/12/21 04:56 01/12/21 04:56 General appearance: Present: severe distress, well-nourished Results - Labs CBC & Chem 7: 01/10/21 04:06 01/10/21 01:07 Labs: Laboratory Last Values WBC 7.3 K/mm3 (4.5-11.0) 01/10/21 04:06 RBC 3.79 M/mm3 (3.65-5.03) 01/10/21 04:06 Hgb 11.0 gm/dl (10.1-14.3) 01/10/21 04:06 Hct 33.2 % (30.3-42.9) 01/10/21 04:06 MCV 88 fl (79-97) 01/10/21 04:06 MCH 29 pg (28-32) 01/10/21 04:06 MCHC 33 % (30-34) 01/10/21 04:06 RDW 16.9 % (13.2-15.2) H 01/10/21 04:06 Plt Count 165 K/mm3 (140-440) 01/10/21 04:06 Lymph % (Auto) 23.2 % (13.4-35.0) 01/10/21 04:06 [place] % (Auto) 18.3 % (0.0-7.3) H 01/10/21 04:06 Eos % (Auto) 0.1 % (0.0-4.3) 01/10/21 04:06 Baso % (Auto) 0.3 % (0.0-1.8) 01/10/21 04:06 Lymph # (Auto) 1.7 K/mm3 (1.2-5.4) 01/10/21 04:06 [place] # (Auto) 1.3 K/mm3 (0.0-0.8) H 01/10/21 04:06 Eos # (Auto) 0.0 K/mm3 (0.0-0.4) 01/10/21 04:06 Baso # (Auto) 0.0 K/mm3 (0.0-0.1) 01/10/21 04:06 Seg Neutrophils % 58.1 % (40.0-70.0) 01/10/21 04:06 Seg Neutrophils # 4.2 K/mm3 (1.8-7.7) 01/10/21 04:06 Sodium 132 mmol/L (137-145) L 01/10/21 01:07 Potassium 4.0 mmol/L (3.6-5.0) 01/10/21 01:07 Chloride 100.7 mmol/L (98-107) 01/10/21 01:07 Carbon Dioxide 22 mmol/L (22-30) 01/10/21 01:07 Anion Gap 13 mmol/L 01/10/21 01:07 BUN 8 mg/dL (7-17) 01/10/21 01:07 Creatinine 0.8 mg/dL (0.6-1.2) 01/10/21 01:07 Estimated GFR > 60 ml/min 01/10/21 01:07 BUN/Creatinine Ratio 10 % 01/10/21 01:07 Glucose 89 mg/dL (65-100) 01/10/21 01:07 Lactic Acid 0.90 mmol/L (0.7-2.0) 01/09/21 21:34 Calcium 7.7 mg/dL (8.4-10.2) L D 01/10/21 01:07 Magnesium 1.90 mg/dL (1.7-2.3) 01/09/21 21:15 Total Bilirubin 0.20 mg/dL (0.1-1.2) 01/10/21 01:07 AST 8 units/L (5-40) 01/10/21 01:07 ALT 7 units/L (7-56) 01/10/21 01:07 Alkaline Phosphatase 47 units/L (35-129) 01/10/21 01:07 Total Creatine Kinase 45 units/L (30-135) 01/09/21 21:15 Total Protein 6.7 g/dL (6.3-8.2) 01/10/21 01:07 Albumin 3.2 g/dL (3.9-5) L 01/10/21 01:07 Albumin/Globulin Ratio 0.9 % 01/10/21 01:07 HCG, Quant < 2 mIU/mL (0-4) 01/09/21 21:15 Urine Color Yellow (Yellow) 01/09/21 Unknown Urine Turbidity Slightly-cloudy (Clear) 01/09/21 Unknown Urine pH 6.0 (5.0-7.0) 01/09/21 Unknown Ur Specific [place] 1.012 (1.003-1.030) 01/09/21 Unknown Urine Protein <15 mg/dl mg/dL (Negative) 01/09/21 Unknown Urine Glucose (UA) Neg mg/dL (Negative) 01/09/21 Unknown Urine Ketones 20 mg/dL (Negative) 01/09/21 Unknown Urine Blood Neg (Negative) 01/09/21 Unknown Urine Nitrite Neg (Negative) 01/09/21 Unknown Urine Bilirubin Neg (Negative) 01/09/21 Unknown Urine Urobilinogen < 2.0 mg/dL (<2.0) 01/09/21 Unknown Ur Leukocyte Esterase Tr (Negative) 01/09/21 Unknown Urine WBC (Auto) 8.0 /HPF (0.0-6.0) H 01/09/21 Unknown Urine RBC (Auto) 4.0 /HPF (0.0-6.0) 01/09/21 Unknown U Epithel Cells (Auto) 14.0 /HPF (0-13.0) H 01/09/21 Unknown Urine Mucus Few /HPF 01/09/21 Unknown Urine HCG, Qual Negative (Negative) 01/09/21 Unknown Blood Type O POSITIVE 01/10/21 01:07 Antibody Screen Negative 01/10/21 01:07 Microbiology: Microbiology 01/09/21 18:17 Peripheral/Venous Blood Culture - Preliminary NO GROWTH AFTER 48 HOURS 01/09/21 18:23 Peripheral/Venous Blood Culture - Preliminary NO GROWTH AFTER 48 HOURS Wick/IV: Voiding Method Toilet Active Medications - Current Medications Current Medications: Generic Name Dose Route Start Last Admin Trade Name Freq PRN Reason Stop Dose Admin Al Hydrox/Mg Hydrox/Simethicone 15 ml 01/10/21 06:57 Alum-Mag Hydroxide-Simethicone [phone]/5ml Oral Liqd 30 Ml PO Q4H PRN Indigestion Enoxaparin Sodium 40 mg 01/10/21 10:00 01/12/21 09:14 Enoxaparin 40 Mg/0.4 Ml Inj SUB-Q 40 mg DAILY DIAZ Administration Protocol Famotidine 20 mg 01/10/21 10:00 01/12/21 09:15 Famotidine 20 Mg Tab PO 20 mg BID DIAZ Administration Sodium Chloride 1,000 mls @ 100 mls/hr 01/10/21 00:45 01/12/21 06:12 Nacl 0.9% 1000 Ml IV 100 mls/hr DIRECT DIAZ Administration Cefepime HCl 1 gm in 100 mls @ 200 mls/hr 01/10/21 15:00 01/12/21 05:31 Cefepime/Ns 1 Gm/100 Ml IV 200 mls/hr Q8HR DIAZ Administration Protocol Morphine Sulfate 2 mg 01/11/21 13:48 Morphine 2 Mg/1 Ml Inj IV Q4H PRN Pain, Moderate (4-6) Ondansetron HCl 4 mg 01/10/21 00:50 Ondansetron 4 Mg/2 Ml Inj IV Q4H PRN Nausea And Vomiting Senna 17.6 mg 01/10/21 06:57 Sennosides Oral Liqd 8.8 Mg/5 Ml Oral Liqd PO Q12HR PRN Laxative Effect Tramadol HCl 50 mg 01/10/21 00:51 01/12/21 09:14 Tramadol 50 Mg Tab PO 50 mg Q4H PRN Administration Pain, Moderate (4-6) Trazodone HCl 50 mg 01/10/21 00:45 01/11/21 22:03 Trazodone 50 Mg Tab PO 50 mg QHS PRN Administration Insomnia
[2021-01-12] MEDS ORDERED: SODIUM CHLORIDE 0.9% 1000 ML 1,000 ML IV ONE ×2 (12:00→14:59)
--- NOTE | 2021-01-12 13:10 | Progress Note ---
Assessment and Plan Cultures: 01/09/2021 blood culture: no growth Urine culture: In process A/P: 25-year-old female with previous history of UTI and pyelonephritis in November 2020 was complicated by right renal abscess: #Left-sided pyelonephritis, ?lobar nephronia on CT. #Recent history of right-sided pyelonephritis and renal abscess: Appears improved on CT scan. Recs: -continue IV Cefepime, recommend culture directed antibiotics, await for urine culture results -anticipate discharge on PO abx, treat for 14 days given severity of disease and recent h/o renal abscess d/w Dr. Miranda. Kamlesh Ames MD, FACP [facility] ([facility]) O: [phone] F: [phone] Subjective Date of service: 01/12/21 Interval history: No fever. Pain + but tolerable, also feels dizzy, lying in bed. Objective - Exam Narrative Exam: Physical Exam: Constitutional: Alert, cooperative. No acute distress Head, Ears, Nose: Normocephalic, atraumatic. External ears, nose normal Eyes: Conjunctivae/corneas clear. No icterus. No ptosis. Cardiovascular: S1, S2 normal. Respiratory: Good air entry, clear to auscultation bilaterally GI: Soft, non-tender; bowel sounds normal. No peritoneal signs. Left flank tenderness + much improved Musculoskeletal: No pedal edema, no cyanosis. Skin: No rash or abscess Hem/Lymphatic: No palpable cervical or supraclavicular nodes. No lymphangitis Psych: Mood ok. Affect normal Neurological: Awake, alert, oriented. No gross abnormality - Constitutional Vitals: Vital Signs Temp Pulse Resp BP Pulse Ox 98.0 F 78 18 86/53 98 01/12/21 11:18 01/12/21 11:18 01/12/21 11:18 01/12/21 11:18 01/12/21 11:18 Temperature -Last 24 Hours Temperature 98.0 F Temperature 98.3 F Temperature 95.0 F Temperature 97.9 F - Labs CBC & Chem 7: 01/10/21 04:06 01/10/21 01:07
--- NOTE | 2021-01-12 17:40 | Cat Scan Report ---
CT ABDOMEN AND PELVIS WITH CONTRAST INDICATION / CLINICAL INFORMATION: Right lower quadrant pain. TECHNIQUE: Axial CT images were obtained through the abdomen and pelvis after 100 cc Omnipaque 300 IV contrast a nd oral contrast. All CT scans at this location are performed using CT dose reduction for RUSTY dong of automated exposure control. COMPARISON: CT abdomen and pelvis with contrast from 01/09/2021. FINDINGS: LOWER CHEST: No significant abnormality. LIVER: No significant abnormality. GALLBLADDER: A hyperenhancing lesion is again seen medially along the lateral segment of the left hep atic lobe measuring up to 3.4 x 2.2 cm on image 28 of series 601. No other significant abnormality. BILE DUCTS: No significant abnormality. PANCREAS: No significant abnormality. SPLEEN: No significant abnormality. ADRENALS: No significant abnormality. RIGHT KIDNEY / URETER: No significant abnormality. LEFT KIDNEY / URETER: The previously described findings of pyelonephritis seen along the upper/mid le ft kidney have slightly improved. No new significant abnormality is identified. STOMACH / SMALL BOWEL: No significant abnormality. COLON: No significant abnormality. APPENDIX: No significant abnormality. PERITONEUM: No free fluid. No free air. No fluid collection. LYMPH NODES: No significant adenopathy. AORTA / ARTERIES: No significant abnormality. IVC / VEINS: No significant abnormality. URINARY BLADDER: No significant abnormality. REPRODUCTIVE ORGANS: No significant abnormality. ADDITIONAL FINDINGS: None. SKELETAL SYSTEM: No significant abnormality. IMPRESSION: Slightly improved appearance of the previously described findings of left pyelonephritis. No new acut e abnormality of the abdomen or pelvis. Signer Name: Barry Bruner MD Signed: 01/12/2021 5:36 PM Workstation Name: [id number]
[2021-01-13] MEDS: ENOXAPARIN 40 MG/0.4 ML INJ SUB-Q SCH (10:08)
[2021-01-13] MEDS: FAMOTIDINE 20 MG TAB PO SCH (10:08)
[2021-01-13 12:52] VITALS: BP 106/61
[2021-01-13] MEDS: traMADol 50 MG TAB PO PRN (13:00)
[2021-01-13] MEDS: CEFEPIME/NS 1 GM/100 ML 1 GM/100 ML BAG IV SCH (13:02)
[2021-01-13] MEDS: SODIUM CHLORIDE 0.9% 1000 ML 1,000 ML IV SCH (13:03)
--- NOTE | 2021-01-13 18:08 | Discharge Summary ---
Providers - Providers Date of Admission: 01/10/21 13:15 Date of discharge: 01/13/21 Attending physician: GERARDO BENITEZ 01/10/21 07:10 Consult to Physician [CONS] Routine Comment: Consulting Provider: KOKO GREEN Physician Instructions: Reason For Exam: Pyelonephritis Primary care physician: [employer] Hospitalization Condition: Serious Hospital course: ED [id number] WBC 10.2, hemoglobin 13.1, platelet 197, sodium 130, potassium 4.2, creatinine 1.0 Lactic acid 1[address] of the abdomen showed air left-sided pyelonephritis Patient seen in ED at bedside. She reports right flank pain. Pain level is 10/10. Patient denies alcohol or alcohol use tobacco use and illicit drug use. I reviewed labs, medical record, and vital signs. 01/10: Continue supportive care. ID consulted. Will follow cultures. Pain control. As advised by case management that patient is noncompliant discussed compliance with the patient in detail. We will give a bolus of fluid due to noted hypotension. Monitor electrolytes and labs in a.m. 01/11: Continue supportive care adjust pain medication for better control. ID input noted awaiting urine culture 01/12: Considering extensive antibiotic therapy in the past and also severity of pyelonephritis. Will await urine culture to determine right antibiotics prior to discharge anticipate discharge in 24 hours (1) left pyelonephritis Current Visit: Yes Status: Acute Plan to address problem: Cultures negative No growth in urine or blood We will discharge on Levaquin for 10 days (2) Sepsis Current Visit: Yes Status: Acute Plan to address problem: Improved (3) Renal abscess, right Current Visit: No Status: Acute Plan to address problem: hx of renal abscess with previous admit Noncompliance with antibiotic therapy CT abdomen showed left sided pyelonephritis on this admission Empiric antibiotic therapy (4) Hyponatremia Current Visit: Yes Status: Acute Plan to address problem: Improved Disposition: - TO HOME OR SELFCARE Exam - Constitutional Vitals: Temp Pulse Resp BP Pulse Ox 98.4 F 64 16 106/61 100 01/13/21 12:39 01/13/21 12:39 01/13/21 12:39 01/13/21 12:39 01/13/21 12:39 Plan Follow up with: PRIMARY CARE, [Primary Care Provider] - 3-5 Days
== END 2021-01-13 19:45 | disposition home or self-care (01) | DRG 871 ==
LOC: ED 17:04 → 4A 22:59 → 3A 23:38 → OBSVTOIN 01-10 13:15
PROVIDERS: ADMIT Internal Medicine Geriatric Medicine; ATTEND Internal Medicine
DX: A41.9 Sepsis, unspecified organism (principal); N15.1 Renal and perinephric abscess; N10 Acute pyelonephritis; E87.1 Hypo-osmolality and hyponatremia; Z91.19 Patient's noncompliance with other medical treatment and regimen; Z79.899 Other long term (current) drug therapy; Z79.891 Long term (current) use of opiate analgesic; Z79.01 Long term (current) use of anticoagulants
CPT/HCPCS: 36415; 74177; 80053; 81001; 81025; 82140; 82550; 82962; 83735; 84702; 85025; 86850; 86900; 86901; 87040; 87086; 96365; 96375; G0378; J0692; J0696; J1170; J1650; J1885; J7030; Q9967

== ENCOUNTER 2021-01-24 03:29 | Emergency (ER) | payer MEDICAID, OTHER ==
[2021-01-24 03:39] VITALS: BP 98/51
[2021-01-24 04:04] LABS: Bacteria,Urine 1+ /HPF (Negative); Bilirubin,Urine NEG (Negative); Blood,Urine NEG (Negative); Color,Urine Straw (Yellow); Mucus,Urine FEW /HPF; Protein,Urine <15 mg/dL mg/dL (Negative); Urobilinogen,Urine < 2.0 mg/dL (<2.0)
[2021-01-24 04:05] LABS: HCG Qualitative,Urine Negative (Negative)
[2021-01-24 04:29] LABS: Hematocrit 36.3 % (30.3-42.9); Hemoglobin 11.9 gm/dl (10.1-14.3); Mean Corpuscular HGB Conc 33 % (30-34); Mean Corpuscular Volume 88 fl (79-97); Platelet Count 388 K/mm3 (140-440); Red Blood Count 4.12 M/mm3 (3.65-5.03); Red Cell Distribution Width 17.7 % (13.2-15.2)
[2021-01-24 04:48] LABS: Alanine Aminotransferase 17 units/L (7-56); BUN/Creatinine Ratio 10; Blood Urea Nitrogen 8 mg/dL (7-17); Calcium 9.1 mg/dL (8.4-10.2); Hemolysis Index 1
== END 2021-01-24 05:05 | disposition left against medical advice (07) ==
LOC: ED 03:29
DX: H57.12 Ocular pain, left eye (principal); Z53.21 Procedure and treatment not carried out due to patient leaving prior to being seen by health care provider
CPT/HCPCS: 36415; 80053; 81001; 81025; 85027

== ENCOUNTER 2021-11-09 22:39 | Emergency (ER) | payer MEDICAID ==
[2021-11-10 00:21] VITALS: BP 112/65
[2021-11-10] MEDS ORDERED: ACETAMINOPHEN 500 MG TAB PO ONE (00:43)
[2021-11-10] MEDS ORDERED: SODIUM CHLORIDE 0.9% 1000 ML 1,000 ML IV ONE (00:43)
[2021-11-10 01:22] LABS: Basophils % (Auto) 0.2 % (0.0-1.8); Eosinophils # (Auto) 0.1 K/mm3 (0.0-0.4); Eosinophils % (Auto) 1.3 % (0.0-4.3); Hematocrit 31.2 % (30.3-42.9); Hemoglobin 10.5 gm/dl (10.1-14.3); Lymphocytes # (Auto) 2.1 K/mm3 (1.2-5.4); Lymphocytes % (Auto) 22.6 % (13.4-35.0); Mean Corpuscular HGB Conc 34 % (30-34); Mean Corpuscular Volume 92 fl (79-97); Monocytes # (Auto) 0.6 K/mm3 (0.0-0.8); Monocytes % (Auto) 6.1 % (0.0-7.3); Platelet Count 425 K/mm3 (140-440); Red Blood Count 3.39 M/mm3 (3.65-5.03); Red Cell Distribution Width 14.4 % (13.2-15.2)
[2021-11-10 01:22] LABS: Bilirubin,Urine NEG (Negative); Blood,Urine LG (Negative); Color,Urine Yellow (Yellow); WBC,Urine < 1.0 /HPF (0.0-6.0)
[2021-11-10 01:39] LABS: Alanine Aminotransferase 13 units/L (7-56); Albumin 3.4 g/dL (3.9-5); Blood Urea Nitrogen 8 mg/dL (7-17); Calcium 9.4 mg/dL (8.4-10.2); Hemolysis Index 1
[2021-11-10 01:41] LABS: BUN/Creatinine Ratio 16
[2021-11-10 01:45] LABS: RBC,Urine < 1.0 /HPF (0.0-6.0)
--- NOTE | 2021-11-10 01:58 | Emergency Department Report ---
ED Female HPI - General Chief complaint: Vaginal Bleeding Stated complaint: POSSIBLE MISCARRIAGE Source: patient Mode of arrival: Ambulatory Limitations: No Limitations - History of Present Illness Initial comments: Patient is a A2 26-year-old -[place] female who was approximately 12 weeks gestation and who presented to the ED with complaint of acute onset persis tent heavy vaginal bleeding for the last 1 week, worse in the last 12 hours. Patient states that large blood clots were expelled including products of conception about 12 hours ago but comes to the ED for evaluation. Patient states that the vaginal bleeding has been persistent and heavy and that she felt lightheaded with generalized weakness and suprapubic pain. Patient denies fever, chills, nausea and vomiting, diarrhea, dysuria, urinary frequency and urgency, chest pain or shortness of breath, cough, sore throat or low back pain. MD Complaint: vaginal bleeding, pelvic pain -: Sudden, week(s) (1) Location: suprapubic Radiation: non-radiating Severity: moderate Severity scale (0 -10): 6 Quality: cramping, sharp Consistency: constant Improves with: none Worsens with: none Are you Now?: Yes (Had miscrriage 12 hours) Associated Symptoms: denies other symptoms, vaginal bleeding, abdominal pain (suprpaubic). denies: vaginal discharge, nausea/vomiting, fever/chills, headaches, loss of appetite, dysuria, hematuria, rash, shortness of breath, syncope, weakness - Related Data Sexually active: Yes : 4 Para: 2 A: 2 Previous Rx's Medication Instructions Recorded Last Taken Type Sulfamethoxazole/Trimethoprim 1 each PO BID 14 Days #28 tablet 01/13/21 Unknown Rx [Bactrim DS TAB] oxyCODONE /ACETAMINOPHEN [Percocet 1 tab PO Q6H PRN #15 tablet 01/13/21 Unknown Rx 5/325 mg] Acetaminophen [Tylenol] 500 mg PO Q6HR PRN #30 tablet 11/10/21 Unknown Rx Ibuprofen [Motrin] 600 mg PO Q8H PRN #24 tablet 11/10/21 Unknown Rx Allergies Allergy/AdvReac Type Severity Reaction Status Date / Time No Known Allergies Allergy Verified 01/09/21 17:13 ED Review of Systems ROS: Stated complaint: POSSIBLE MISCARRIAGE Other details as noted in HPI Constitutional: denies: chills, fever Eyes: denies: eye pain, eye discharge, vision change ENT: denies: ear pain, throat pain Respiratory: denies: cough, shortness of breath, wheezing Cardiovascular: denies: chest pain, palpitations Endocrine: no symptoms reported Gastrointestinal: abdominal pain (Suprapubic pain). denies: nausea, diarrhea Genitourinary: abnormal menses (Heavy vaginal bleeding). denies: urgency, dysuria, discharge Musculoskeletal: denies: back pain, joint swelling, arthralgia Skin: denies: rash, lesions Neurological: denies: headache, weakness, paresthesias Psychiatric: denies: anxiety, depression Hematological/Lymphatic: denies: easy bleeding, easy bruising ED Past Medical Hx - Past Medical History Hx HIV: No - Surgical History Past Surgical History?: Yes Additional Surgical History: right ankle - Social History Smoking Status: Never Smoker Substance Use Type: None - Medications Home Medications: Home Medications Medication Instructions Recorded Confirmed Last Taken Type Sulfamethoxazole/Trimethoprim 1 each PO BID 14 Days #28 tablet 01/13/21 Unknown Rx [Bactrim DS TAB] oxyCODONE /ACETAMINOPHEN [Percocet 1 tab PO Q6H PRN #15 tablet 01/13/21 Unknown Rx 5/325 mg] Acetaminophen [Tylenol] 500 mg PO Q6HR PRN #30 tablet 11/10/21 Unknown Rx Ibuprofen [Motrin] 600 mg PO Q8H PRN #24 tablet 11/10/21 Unknown Rx ED Physical Exam - General Limitations: No Limitations General appearance: alert, in no apparent distress - Head Head exam: Present: atraumatic, normocephalic, normal inspection - Eye Eye exam: Present: normal appearance, PERRL, EOMI Pupils: Present: normal accommodation - ENT ENT exam: Present: normal exam, normal orophraynx, mucous membranes moist, TM's normal bilaterally, normal external ear exam - Neck Neck exam: Present: normal inspection, full ROM. Absent: tenderness - Respiratory Respiratory exam: Present: normal lung sounds bilaterally. Absent: respiratory distress, wheezes, rales, stridor, chest wall tenderness, prolonged expiratory - Cardiovascular Cardiovascular Exam: Present: regular rate, normal rhythm, normal heart sounds. Absent: systolic murmur, diastolic murmur, rubs, gallop - GI/Abdominal GI/Abdominal exam: Present: soft, tenderness (Palpable suprapubic tenderness), normal bowel sounds. Absent: guarding, rebound, hyperactive bowel sounds, hypoactive bowel sounds, organomegaly, mass - Bi-manual exam: Present: other (Pelvic exam deferred at this time, patient preferred) - Extremities Exam Extremities exam: Present: normal inspection, full ROM, normal capillary refill - Back Exam Back exam: Present: normal inspection, full ROM. Absent: tenderness, CVA tenderness (R), CVA tenderness (L), muscle spasm, paraspinal tenderness, vertebral tenderness - Neurological Exam Neurological exam: Present: alert, oriented X3, CN II-XII intact, normal gait, reflexes normal - Psychiatric Psychiatric exam: Present: normal affect, normal mood - Skin Skin exam: Present: warm, dry, intact, normal color. Absent: rash ED Course Vital Signs 11/10/21 11/10/21 00:15 01:03 Temperature 97.8 F Pulse Rate 67 Respiratory 16 14 Rate Blood Pressure 112/65 [Right] O2 Sat by Pulse 100 Oximetry ED Medical Decision Making - Lab Data Result diagrams: 11/10/21 00:53 11/10/21 00:53 - Medical Decision Making This is a A2 26-year-old -[place] female who was approximately 12 weeks gestation and who presented to the ED with complaint of acute onset persistent heavy vaginal bleeding for the last 1 week, worse in the last 12 hour s. Patient states that large blood clots were expelled including products of conception about 12 hours ago but comes to the ED for evaluation. Patient states that the vaginal bleeding has been persistent and heavy and that she felt lightheaded with generalized weakness and suprapubic pain. In the ED, patient is alert and oriented x3 and is not in any distress. Patient was treated for pain in the ED and also given normal saline 1 L IV bolus x1. Lab test results were reviewed and are all nonactionable and hCG quant was 5832 with AB/Rhesus O positive. On reevaluation, patient felt better, pain is well controlled medication. Patient was therefore discharged home and advised to maintain a complete pelvic rest while taking Tylenol as needed for pain and to follow-up with SALES ACCOUNT COORDINATOR physician in 5 to 7 days for reevaluation. Patient was advised return to the ED immediately if symptoms get worse. - Differential Diagnosis Complete miscarriage; ovarian cyst; UTI; subchorionic bleed; fibroids Critical care attestation.: If time is entered above; I have spent that time in minutes in the direct care of this critically ill patient, excluding procedure time. ED Disposition Clinical Impression: Complete miscarriage, Vaginal bleeding before 22 weeks gestation Disposition: HOME / SELF CARE / HOMELESS Is pt being admited?: No Does the pt Need Aspirin: No Condition: Stable Instructions: Vaginal Bleeding During , First Trimester, [id number], Miscarriage, [id number] Additional Instructions: All lab test results were reviewed and are all nonactionable. Your hCG quant is 5832 which is significantly lower and given the fact that you have had a miscarriage, this number is expected to reduce significantly in the next few days. Therefore maintain a complete pelvic rest with no physical or strenuous activities, drink plenty of fluids, take pain medication as needed and follow-up with the SALES ACCOUNT COORDINATOR physician in 3 to 5 days for reevaluation. Return to the ED immediately if symptoms get worse. Prescriptions: Acetaminophen [Tylenol] 500 mg PO Q6HR PRN #30 tablet PRN Reason: Pain , Severe (7-10) Ibuprofen [Motrin] 600 mg PO Q8H PRN #24 tablet PRN Reason: Pain Referrals: RENAN CLARK MD [Staff Physician] - 3-5 Days Forms: Work/School Release Form(ED) Time of Disposition: 02:02 Print Language: MALDIVIAN
[2021-11-10] MEDS ORDERED: ONDANSETRON 4 MG ODT TAB PO ONE (02:24)
[2021-11-10] MEDS ORDERED: IBUPROFEN 600 MG TAB PO ONE (02:24)
[2021-11-10] MEDS ORDERED: HYDROcodone/ACETAMINOPHEN 5-325 MG TAB PO ONE (02:24)
== END 2021-11-10 02:30 | disposition home or self-care (01) ==
LOC: ED 22:39
DX: O03.9 Complete or unspecified spontaneous abortion without complication (principal); Z3A.12 12 weeks gestation of pregnancy; Z79.899 Other long term (current) drug therapy
CPT/HCPCS: 36415; 80053; 81001; 84702; 85025; 86900; 86901; 96360; 99283; J7030; J3490; Q0162

== ENCOUNTER 2022-01-07 23:02 | Emergency (ER) | payer MEDICAID, OTHER ==
[2022-01-07 23:11] VITALS: BP 124/72
== END 2022-01-08 07:00 | disposition left against medical advice (07) ==
LOC: ED 23:02
DX: M79.602 Pain in left arm (principal); Z53.21 Procedure and treatment not carried out due to patient leaving prior to being seen by health care provider